=== PATIENT | male | born 1960 | race Caucasian/White ===

== ENCOUNTER 2022-08-09 17:46 | Inpatient (IN) | payer BC, SELFPAY ==
[2022-08-09] VITALS (17 sets, daily range): BP systolic 125–141; BP diastolic 69–100; PULSE 82–91; RESP 12–20; TEMP 36.9; O2SAT 94–98; BMI 22.6
--- NOTE | ~2022-08-09 | CT_ITS ---
EXAMINATION: CT brain wo con DATE: 08/09/2022 20:47 INDICATION: Right-sided weakness TECHNIQUE: Computed tomography (CT) of the head was performed without intravenous contrast. The mA wa s adjusted according to patient size. Iterative reconstruction technique was employed. Exam dose: 60 5.33 mGy-cm total exam DLP. COMPARISON: None FINDINGS: No intracranial mass lesion or hemorrhage or cerebrovascular accident. No midline shift or mass effect. No subdural or epidural hematoma. The orbital contents are unremarkable. The mastoid air cells and included paranasal sinuses are normally developed and aerated. No fracture or bone destruction of the cranial vault. IMPRESSION: No acute intracranial finding Reviewed, dictated and finalized at [facility]. Reviewed, dictated and finalized at location A.
--- NOTE | ~2022-08-09 | MR_ITS ---
EXAMINATION: MR brain/brain stem wo/w con DATE: 08/10/2022 12:27 INDICATION: Right-sided weakness TECHNIQUE: Magnetic resonance imaging (MRI) of the brain and brainstem was performed without intraven ous contrast. Sequences included sagittal and axial T1-weighted SE, axial diffusion-weighted FS SE, a xial T2*-weighted GRE, axial T2-weighted FLAIR Propeller, and axial T2-weighted Propeller. Apparent d iffusion coefficient (ADC) maps were created. COMPARISON: CT dated 08/09/2022. FINDINGS: Mild generalized atrophy. There are scattered mild periventricular and subcortical white ma tter changes, most likely related to small vessel ischemic disease (microangiopathy). No acute intrac ranial infarction, hemorrhage, mass or mass effect. No ventriculomegaly or midline shift. Midline sag ittal images demonstrate a normal corpus callosum and craniovertebral junction. Paranasal sinuses are unremarkable. Orbits are symmetric. IMPRESSION: 1. No acute intracranial abnormality. 2: Chronic age-related findings Reviewed, dictated and finalized at location [facility].
--- NOTE | ~2022-08-09 | MR_ITS ---
EXAMINATION: MR cervical spine wo/w con DATE: 08/10/2022 12:28 INDICATION: without and with 15 mL Multihance TECHNIQUE: Magnetic resonance imaging (MRI) of the cervical spine was performed . without and with 14 mL Multihance intravenous contrast. Sequences included sagittal T2-weighted FSE, sagittal T2-weighte d FS FSE, sagittal T1-weighted FSE, axial T2-weighted FSE, and axial T1-weighted SE. Postcontrast seq uences included sagittal T1-weighted FS FSE, and axial T1-weighted FS SE. COMPARISON: None FINDINGS: Mild cervical dextrocurvature. Straightening of the normal cervical lordosis. 1 mm anterolisthesis C7 on T1. Moderate disc height loss at C5-C6 and C6-C7. Mild disc height loss at C7-T1. Vertebral body heights are normal. Bone marrow signal intensity is normal. Intervertebral disc heights are normal. Cord signal intensity is normal. Cervical soft tissues are unremarkable. No abnormally enhancing les ions identified. The following disc levels are specifically discussed: C2-C3: The disc does not extend beyond the endplate margin. There is mild right uncovertebral joint o steoarthritis. There is mild bilateral facet joint osteoarthritis. There is no neural foraminal steno sis. There is no central canal stenosis. C3-C4: The disc does not extend beyond the endplate margin. There is moderate right and moderate left uncovertebral joint osteoarthritis. There is mild right and moderate left facet joint osteoarthritis . There is mild right and mild to moderate left neural foraminal stenosis. There is no central canal stenosis. C4-C5: The disc does not extend beyond the endplate margin. There is mild bilateral uncovertebral reina nt osteoarthritis. There is moderate right and moderate left facet joint osteoarthritis. There is mil d right and mild to moderate left neural foraminal stenosis. There is no central canal stenosis. C5-C6: Disc is bulging. There is severe bilateral uncovertebral joint osteoarthritis. There is mild r ight and mild to moderate left facet joint osteoarthritis. There is moderate right and moderate to se fela left neural foraminal stenosis. There is mild central canal stenosis with slight indention of th e ventral surface of the cord. C6-C7: Disc is bulging. There is moderate left and severe right uncovertebral joint osteoarthritis. T here is mild to moderate bilateral facet joint osteoarthritis. There is mild left and moderate to sev ere right neural foraminal stenosis. There is mild central canal stenosis. C7-T1: The disc does not extend beyond the endplate margin. There is mild left and moderate right unc overtebral joint osteoarthritis. There is severe bilateral facet joint osteoarthritis. There is mild left and moderate right neural foraminal stenosis. There is no central canal stenosis. IMPRESSION: 1. Mild cervical dextrocurvature with moderate lower cervical predominant spondylosis. Reviewed, dictated and finalized at location A. IMPRESSION: 1. Mild cervical dextrocurvature with moderate lower cervical predominant spond ylosis.
--- NOTE | ~2022-08-09 | US_ITS ---
US right upper quadrant INDICATION: Hepatomegaly PROCEDURE: Realtime right upper abdominal ultrasound. COMPARISON: No prior studies for comparison. FINDINGS: The pancreas is normal without focal mass or pancreatic ductal dilation. Liver echotexture is increased, consistent with fatty infiltration. There is nodular surface to the liver, suspicious for cirrhosis. No focal hepatic masses. There is normal directional flow in the portal vein. Small a mount of free fluid. The gallbladder is normal without stones, gallbladder wall thickening or pericholecystic fluid. Comm on bile duct measures 6 mm. No sonographic Stephenson's sign. IMPRESSION: 1: Hepatic steatosis. Possible underlying cirrhosis. 2: Small amount of ascites. Reviewed, dictated and finalized at location B.
--- NOTE | ~2022-08-09 | XR_ITS ---
XR chest 1V portable DATE: 08/09/2022 19:43 INDICATION: Weakness TECHNIQUE: Portable upright AP chest on 08/09/2022 at 1941 hours COMPARISON: 11/01/2012 two-view chest FINDINGS: Normal heart size. Mild aortic unfolding. No hilar or mediastinal enlargement. No pulmonary infiltrate or consolidation, pleural effusion or pulmonary vascular congestion or pneumothorax. Degenerative spurring of the thoracic spine. IMPRESSION: No active cardiac pulmonary disease Reviewed, dictated and finalized at location A.
[2022-08-09 18:25] LABS: Glucose Point of Care > 500 mg/dl (65-105)
--- NOTE | 2022-08-09 18:25 | ECG_ITS ---
Measurements Intervals [place] Rate: 81 P: 41 ME: 191 QRS: -9 QRSD: 90 T: -6 QT: 388 QTc: 451 Interpretive Statements SINUS RHYTHM INFERIOR MYOCARDIAL INFARCTION , PROBABLY OLD [40+ ms Q WAVE AND/OR ST/T ABNORMALITY IN II/aVF] NO PREVIOUS ECG AVAILABLE FOR COMPARISON Electronically Signed On 08-10-2022 13:52:35 CDT by Sonia Bradshaw M.D.
--- NOTE | 2022-08-09 18:34 | PC.NURSE ---
during assessment acetone noted on breath, glucometer read high, SLN established and labs drawn. Swathi KINNEY notified
[2022-08-09 18:38] LABS: Glucose Point of Care > 500 mg/dl (65-105)
[2022-08-09 18:40] LABS: Basophils Percent Auto 0.3 % (0.2-1.2); Eosinophils Absolute Auto 0.1 K/mm3 (0-0.3); Eosinophils Percent Auto 1.3 % (0-4.4); Hemoglobin 14.4 g/dL (14.0-18.0); Immature Granulocyte Absolute 0.01 K/mm3 (0.00-0.031); Immature Granulocyte Percent A 0.2 % (0-0.5); Immature Platelet Fraction Pct 17.1 % (0.9-11.2); Lymphocytes Absolute Auto 1.26 K/mm3 (0.9-3.2); Lymphocytes Percent Auto 20.5 % (18.3-44.2); Mean Corpuscular HGB Conc 33.5 g/dl (32-36); Mean Corpuscular Hemoglobin 31.1 pg (26-34); Mean Corpuscular Volume 92.9 fl (80-100); Mean Platelet Volume 13.6 fl (7.4-10.4); Monocytes Absolute Auto 0.5 K/mm3 (0.1-0.6); Monocytes Percent Auto 8.5 % (2.6-8.5); Neutrophils Absolute Auto 4.3 K/mm3 (1.3-6.7); Neutrophils Percent Auto 69.2 % (45.5-73.1); Platelet Count Result 115 k/mm3 (150-375); Red Blood Count 4.63 M/mm3 (4.6-6.20); Red Cell Distribution Width 13.1 % (11.5-14.5); White Blood Count 6.2 K/mm3 (4.5-10.0)
[2022-08-09 18:50] LABS: Alanine Aminotransferase 42 U/L (6-50); Albumin Level 4.3 g/dL (3.5-5.1); Alkaline Phosphatase 137 U/L (38-126); Anion Gap 19 mmol/L (8-16); Aspartate Amino Transferase 29 U/L (17-59); Bilirubin,Total 0.9 mg/dL (0.2-1.3); Blood Urea Nitrogen 13 mg/dL (9-20); Calcium 9.1 mg/dL (8.4-10.2); Carbon Dioxide 22 mmol/L (22-30); Chloride 82 mmol/L (98-107); Estimated CRCL calculation 89 ml/min; Estimated Glomerular Filt Rate > 60; Potassium 4.9 mmol/L (3.4-5.0); Sodium 123 mmol/L (137-145)
[2022-08-09 19:08] LABS: Glucose 1016 mg/dL (65-110); Magnesium 1.7 mg/dL (1.6-2.3); Phosphorus 2.9 mg/dL (2.5-4.5)
[2022-08-09] MEDS: SODIUM CHLORIDE 0.9% IV 1,000 ML 999 ML IV CONT ×3 (19:09→20:53)
[2022-08-09 19:12] LABS: Alveolar/Arterial O2 Gradient 40.5 mmHg; Base Excess ABG -3.4 mEq/l (+/-2.0); Carboxyhemoglobin 2.8 % THb (0-2.0); Fractional Inspired Oxygen 21 %; Methemoglobin ABG 0.2 %THb (0-1.5); Oxygen Content ABG 19.3 %vol (16.0-22.0); Oxygen Saturation ABG 96.1 % (95.0-100.0); Oxyhemoglobin 92.1 % THb (90.0-100.0); PCO2 ABG 27.6 mmHg (35.0-45.0); PO2 ABG 76.2 mmHg (80.0-100.0); PO2 FiO2 Ratio Arterial Blood 3.63 %; Reduced Hemoglobin 4.9 %THb (0-5.0); Total Hemoglobin 14.9 g/dL (12.0-18.0); pH ABG 7.455 (7.350-7.450)
[2022-08-09 19:13] LABS: Device ROOM AIR; Modified Allen's Test Pass; Site Drawn LEFT RADIAL
[2022-08-09 19:16] LABS: Beta-Hydroxybutyrate/Acetoacetate 3.02 mmol/L (0.02-0.27)
[2022-08-09 19:29] LABS: Add Urine Microscopic? YES; Appearance Urine Clear (Clear); Bacteria Urine Trace /hpf; Bilirubin Urine Negative (Negative); Blood Urine Negative (Negative); Color Urine Colorless (Yellow); Glucose Urine UA 3+ mg/dL (Negative); Ketones Urine 1+ mg/dL (Negative); Leukocyte Esterase Ur Negative LEU/UL (Negative); Nitrate Urine Negative (Negative); Protein Urine Negative (Negative); Specific Grav Ur 1.025 (1.001-1.035); Urobilinogen Urine Negative mg/dL (<2.0); WBC Urine 0-3 /hpf
[2022-08-09] MEDS: INSULIN HUMAN REGULAR (*BKC) 100 UNITS/ML 9 UNITS IV PUSH (19:35)
[2022-08-09] MEDS: INSULIN HUMAN REGULAR (*BKC) 100 UNITS in SODIUM CHLORIDE 0.9% IV 99 ML 19.1 UNITS IV CONT (19:45)
[2022-08-09] MEDS: MAGNESIUM SULF 2 GM/WATER 50ML 2 GM/50 ML BAG IVPB (20:03)
--- NOTE | 2022-08-09 20:18 | ED.GENADULT ---
HPI - General Adult General Chief complaint: Neuro Symptoms/Deficit Stated complaint: right sided weakness and spasms x 10 days Time Seen by Provider: 08/09/22 19:11 History of Present Illness HPI narrative: Patient is a 62-year-old gentleman who presents emergency department with chief complaint of generalized weakness. The patient states that for several months he has been having increased weakness early CAD and has been thirsty all the time. The patient states over the last 10 days he has noticed that he started having spasms in his extremities that are like a cramp the patient states this is not improved by anything reports that he has reached a point that he is not really eating foods but is drinking lots of fluids. The patient states that he feels extremely dry and reports that he is been urinating quite frequently as well. The patient reports no prior history of diabetes the patient reports no chest pain no shortness of breath no fever or chills. Related Data Allergies Allergy/AdvReac Type Severity Reaction Status Date / Time No Known Allergies Allergy Verified 08/09/22 17:47 Review of Systems Review of Systems: A 10 system review of systems was completed on the patient and is negative except for what is stated in the HPI. Nursing and ancillary documentation was reviewed. [facility] Past Medical History Medical History Generalized anxiety disorder with panic attacks HSV infection Hypospadias Pancreatitis PTSD (post-traumatic stress disorder) Traumatic amputation of finger Surgical History Surgical History History of appendectomy History of colonoscopy (~03/09/17) History of lumbosacral spine surgery Family History Family History Father Diabetes mellitus Other Carcinoma of colon Family history of alcoholism Family history of mental disorder Social History Social History Smoking status: Former smoker Smoking end date: 10/15/17 Exam Narrative: GENERAL: Well-appearing, well-nourished, and in no acute distress. HEAD: Normocephalic, atraumatic. EYES: PERRLA and EOMI. ENT: Nares clear, no rhinorrhea or epistaxis. Mucous membranes moist. NECK: Supple. CHEST: Clear to auscultation. No respiratory distress. HEART: Regular rate and rhythm. No murmur heard. Normal peripheral pulses. ABDOMEN: Soft, nontender, nondistended, normal active bowel sounds. EXTREMITIES: Normal range of motion. No edema. SKIN: Warm, dry, no rash. NEURO: No focal deficits. Alert and oriented x3. PSYCH: Normal mood and affect. Course Vital Signs Vital signs: Vital Signs Temperature 36.9 C 08/09/22 18:03 Pulse Rate 89 08/09/22 18:03 Respiratory Rate 20 08/09/22 18:03 Blood Pressure 131/69 08/09/22 18:03 Pulse Oximetry 97 08/09/22 18:03 Temperature 36.9 C 08/09/22 18:03 Pulse Rate 84 08/09/22 19:46 Respiratory Rate 15 08/09/22 19:46 Blood Pressure 131/85 08/09/22 19:46 Pulse Oximetry 96 08/09/22 19:46 Medical Decision Making Vital Signs Vital Signs: Vital Signs Temperature 36.9 C 08/09/22 18:03 Pulse Rate 89 08/09/22 18:03 Respiratory Rate 20 08/09/22 18:03 Blood Pressure 131/69 08/09/22 18:03 Pulse Oximetry 97 08/09/22 18:03 Temperature 36.9 C 08/09/22 18:03 Pulse Rate 84 08/09/22 19:46 Respiratory Rate 15 08/09/22 19:46 Blood Pressure 131/85 08/09/22 19:46 Pulse Oximetry 96 08/09/22 19:46 Lab Data Result diagrams: 08/09/22 18:34 08/09/22 18:34 Labs: Lab Results 08/09/22 08/09/22 08/09/22 Range/Units 18:21 18:34 18:34 WBC 6.2 (4.5-10.0) K/mm3 RBC 4.63 (4.6-6.20) M/mm3 Hgb 14.4 (14.0-18.0) g/dL Hct 43.0 (42.0-52.0) % MCV 92
--- NOTE | 2022-08-09 20:30 | PM.IMHP ---
H&P: HPI History of Present Illness Date/Time: 08/09/22 20:30 Chief Complaint: 62 years old male with past medical history of anxiety presented to the hospital with generalized weakness started few months ago worsening gradually no aggravating or relieving factors but for the past 10 days it worsened rapidly patient also complains of spasm and numbness on the right upper and lower extremity also was having weakness in the right upper extremity for the past 10 days patient has been complaining of frequency of urination increased thirst polydipsia for few weeks patient have positive family history of diabetes at the ER patient was found to have blood sugar of above a 1000 severely dehydrated chest x-ray no significant findings UA shows few rbc's patient was found to have hyperosmolar hyperglycemia syndrome admitted to the hospital for further evaluation and treatment Review of Systems Review of Systems: Twelve system review was done is negative except above PMFSH Past Medical History Medical History Generalized anxiety disorder with panic attacks HSV infection Hypospadias Pancreatitis PTSD (post-traumatic stress disorder) Traumatic amputation of finger Surgical History Surgical History History of appendectomy History of colonoscopy (~03/09/17) History of lumbosacral spine surgery Family History Family History Father Diabetes mellitus Other Carcinoma of colon Family history of alcoholism Family history of mental disorder Social History Social History Smoking status: Former smoker Smoking end date: 10/15/17 Meds Home Medications and Allergies Home Medications Medication Instructions Recorded Confirmed Type clorazepate dipotassium 7.5 mg 7.5 mg PO TID PRN anxiety #90 tabs 06/16/21 08/10/21 Rx tablet (Tranxene T-Tab) sertraline 100 mg tablet See Rx Instructions .Route 08/10/21 08/10/21 Rx .COMPLEX #180 tabs tramadol 50 mg tablet 100 mg PO Q8H PRN pain #90 tabs 02/09/22 Rx tamsulosin 0.4 mg capsule 0.4 mg PO DAILY #90 caps 02/15/22 Rx bupropion HCl 150 mg tablet,12 hr See Rx Instructions .Route 03/20/22 Rx sustained-release .COMPLEX #90 tabs quetiapine 50 mg tablet 50 mg PO QHS #90 tabs 03/27/22 Rx aripiprazole 5 mg tablet (Abilify) 5 mg PO DAILY #90 tabs 05/03/22 Rx tadalafil 5 mg tablet (Cialis) 5 mg PO DAILY #30 tabs 05/24/22 Rx Allergies Allergy/AdvReac Type Severity Reaction Status Date / Time No Known Allergies Allergy Verified 08/09/22 17:47 Vital Signs Vital Signs - 24 hr 08/09/22 18:03 08/09/22 18:26 08/09/22 18:30 Temperature 98.4 F Pulse Rate 89 Respiratory Rate 20 Blood Pressure 131/69 Pulse Oximetry 97 96 97 08/09/22 18:37 08/09/22 18:38 08/09/22 19:46 Temperature Pulse Rate 82 82 84 Respiratory Rate 18 12 15 Blood Pressure 141/100 H 131/85 Pulse Oximetry 97 98 96 Exam Narrative: GENERAL: Well appearing, well-nourished, non-toxic, in no acute distress. HEAD: Normocephalic, atraumatic. NECK: Supple. No adenopathy, no masses. RESPIRATORY: Airway patent, respirations nonlabored. Clear to auscultation bilaterally, no rales, rhonchi, wheezing. CARDIOVASCULAR: Regular rate and rhythm without murmurs, rubs, or gallops. Peripheral pulses 2+ and equal bilaterally. ABDOMINAL: Soft, nontender, nondistended, no hepatosplenomegaly. Normoactive BS. MUSCULOSKELETAL: Moves all extremities. Strength/ROM intact without gross deformities or TTP. No edema. No calf tenderness. No chest wall tenderness palpation. SKIN: Warm, dry, normal color. No rashes. NEURO: A&O X3. Speech clear. Right upper and lower extremity weakness decreased sensory sensation in the right upper lower extremity PSYCHIATRIC: Appropriate mood and
[2022-08-09 20:47] LABS: Hemoglobin A1C > 14.0 % (<5.7)
[2022-08-09 21:47] LABS: Glucose Point of Care 305 mg/dl (65-105)
[2022-08-09] MEDS: KCL 20 MEQ/D5/0.45% SOD CHL 1,000 ML 150 ML IV CONT (22:18)
--- NOTE | 2022-08-09 22:35 | ADMGEN ---
This patient, Eddie Ordaz, was admitted to Intensive Care Unit-9. Patient/family oriented to hospital policies and general routines including ID bracelet, bed and alarms, visiting hours, pain management, procedures, bathroom and other care routines, personal items, smoking policy, room service/diet, and visiting hours. Information on how to activate the Rapid Response Team has been discussed. Patient/Family are encouraged to report perceived risks to care and to ask questions if they do not understand what they are told or what they should do.
[2022-08-09] MEDS: SODIUM CHLORIDE 0.9% IV 1,000 ML 200 ML IV CONT (22:49)
[2022-08-09] MEDS: ONDANSETRON INJ 4 MG/2 ML VIAL IV PUSH (22:53)
[2022-08-09 23:30] LABS: Anion Gap 13 mmol/L (8-16); Blood Urea Nitrogen 10 mg/dL (9-20); Calcium 8.4 mg/dL (8.4-10.2); Carbon Dioxide 23 mmol/L (22-30); Chloride 99 mmol/L (98-107); Estimated CRCL calculation 101 ml/min; Estimated Glomerular Filt Rate > 60; Glucose 243 mg/dL (65-110); Potassium 2.9 mmol/L (3.4-5.0); Sodium 135 mmol/L (137-145)
[2022-08-09] MEDS: ACETAMINOPHEN 325 MG TABLET 650 MG PO (23:46)
[2022-08-09 23:57] LABS: Glucose Point of Care 173 mg/dl (65-105)
[2022-08-09 23:57] LABS: Glucose Point of Care 301 mg/dl (65-105)
[2022-08-10] VITALS (12 sets, daily range): BP systolic 91–136; BP diastolic 56–84; PULSE 57–85; RESP 15–22; TEMP 36.3–36.9; O2SAT 93–99; BMI 22.6
[2022-08-10] MEDS: INSULIN HUMAN REGULAR (*BKC) 100 UNITS in SODIUM CHLORIDE 0.9% IV 99 ML 7 UNITS IV CONT (00:54)
[2022-08-10 00:59] LABS: Glucose Point of Care 200 mg/dl (65-105)
[2022-08-10 01:53] LABS: Glucose Point of Care 190 mg/dl (65-105)
[2022-08-10 01:53] LABS: Anion Gap 13 mmol/L (8-16); Blood Urea Nitrogen 9 mg/dL (9-20); Calcium 7.8 mg/dL (8.4-10.2); Carbon Dioxide 25 mmol/L (22-30); Chloride 100 mmol/L (98-107); Estimated CRCL calculation 119 ml/min; Estimated Glomerular Filt Rate > 60; Glucose 169 mg/dL (65-110); Magnesium 1.9 mg/dL (1.6-2.3); Phosphorus 2.6 mg/dL (2.5-4.5); Potassium 2.5 mmol/L (3.4-5.0); Sodium 138 mmol/L (137-145)
[2022-08-10] MEDS: POTASSIUM CHLORIDE 20 MEQ TABLET 40 MEQ PO (02:32)
[2022-08-10] MEDS: POTASSIUM CHLORIDE INJ 40 MEQ in SODIUM CHLORIDE 0.9% IV 500 ML 130 MEQ IVPB (02:32)
[2022-08-10 03:04] LABS: Glucose Point of Care 202 mg/dl (65-105)
[2022-08-10] MEDS: INSULIN GLARGINE (*BKC) 100 UNITS/ML 10 UNITS SUB-Q (03:32)
[2022-08-10 06:26] LABS: Glucose Point of Care 264 mg/dl (65-105)
[2022-08-10] MEDS: ACETAMINOPHEN 325 MG TABLET 650 MG PO (06:55)
[2022-08-10 07:32] LABS: Basophils Percent Auto 0.3 % (0.2-1.2); Eosinophils Absolute Auto 0.2 K/mm3 (0-0.3); Hematocrit 36.5 % (42.0-52.0); Hemoglobin 12.3 g/dL (14.0-18.0); Immature Granulocyte Absolute 0.01 K/mm3 (0.00-0.031); Immature Granulocyte Percent A 0.2 % (0-0.5); Immature Platelet Fraction Pct 14.8 % (0.9-11.2); Lymphocytes Absolute Auto 2.01 K/mm3 (0.9-3.2); Lymphocytes Percent Auto 33.2 % (18.3-44.2); Mean Corpuscular HGB Conc 33.7 g/dl (32-36); Mean Corpuscular Hemoglobin 31.4 pg (26-34); Mean Corpuscular Volume 93.1 fl (80-100); Mean Platelet Volume 12.9 fl (7.4-10.4); Monocytes Absolute Auto 0.5 K/mm3 (0.1-0.6); Monocytes Percent Auto 8.3 % (2.6-8.5); Neutrophils Absolute Auto 3.3 K/mm3 (1.3-6.7); Platelet Count Result 100 k/mm3 (150-375); Red Blood Count 3.92 M/mm3 (4.6-6.20); Red Cell Distribution Width 13.2 % (11.5-14.5); White Blood Count 6.1 K/mm3 (4.5-10.0)
[2022-08-10 07:40] LABS: Anion Gap 12 mmol/L (8-16); Blood Urea Nitrogen 8 mg/dL (9-20); Calcium 7.6 mg/dL (8.4-10.2); Carbon Dioxide 24 mmol/L (22-30); Chloride 102 mmol/L (98-107); Estimated CRCL calculation 101 ml/min; Estimated Glomerular Filt Rate > 60; Glucose 238 mg/dL (65-110); Magnesium 1.8 mg/dL (1.6-2.3); Phosphorus 3.5 mg/dL (2.5-4.5); Potassium 3.9 mmol/L (3.4-5.0); Sodium 138 mmol/L (137-145)
[2022-08-10 08:26] LABS: Glucose Point of Care 303 mg/dl (65-105)
--- NOTE | 2022-08-10 09:19 | PM.IMPN ---
Progress Note: A&P Assessment and Plan (1) Hyperosmolar hyperglycemic state (HHS): Code(s): E11.00 - Type 2 diabetes mellitus with hyperosmolarity without nonketotic hyperglycemic-hyperosmolar coma (NKHHC) Status: Acute Assessment and Plan: Patient presents with weakness and found to have a glucose of >1000. He has no hx of DM and now newly diagnosed. He was admitted and started on insulin gtt. His AG was 19 and BHO 3.0 but pH was normal. He did have 1+ ketosis as well. Wilsey he had hyperosmolarity and dehydration from the severe hyperglycemia. His AG closed quickly and has been transtioned to [facility]. DM educator consult. Dietitian consult. (2) Right sided weakness: Code(s): R53.1 - Weakness Status: Acute Assessment and Plan: Patient had right upper lower extremity weakness and spasm. Brain CT showing no acute findings. MR of the brain has been ordered. Exam is not showing any acute findings. Follow up on MRI results. Is at cervical spine MRI as well. Neurology has been consulted. Aspirin has been ordered. We will check B12 folate and TSH levels. Suspect his symptoms are mostly related to above. Did have O2 requirement at night so consider YOSHI - check apnea link tonight (3) Hepatomegaly: Code(s): R16.0 - Hepatomegaly, not elsewhere classified Status: Acute Assessment and Plan: Previous imaging has showed fatty infiltration of the liver. Liver enzyme levels are normal. Will check right upper quadrant ultrasound. (4) Thrombocytopenia: Code(s): D69.6 - Thrombocytopenia, unspecified Status: Acute Assessment and Plan: Platelet count 115 K on admission. Slightly decreased from that today. Could be related to his current condition. This also may be chronic possibly related to his hepatomegaly if he has splenic sequestration. Will continue to monitor for now. Check B12 level. (5) PTSD (post-traumatic stress disorder): Code(s): F43.10 - Post-traumatic stress disorder, unspecified Status: Acute Assessment and Plan: mood is stable. Review home medications and will resume appropriate meds. (6) Generalized anxiety disorder with panic attacks: Code(s): F41.1 - Generalized anxiety disorder; F41.0 - Panic disorder [episodic paroxysmal anxiety] Status: Chronic Assessment and Plan: As above (7) Benign prostatic hyperplasia without lower urinary tract symptoms: Code(s): N40.0 - Benign prostatic hyperplasia without lower urinary tract symptoms Status: Chronic Assessment and Plan: As above. Resume Flomax. Subjective Date/time seen: 08/10/22 09:19 Interval history: 62yo male with PTSD, anxiety and BPH here for weakness and found to have hyperglycemia. Patient slept well last night. Needed O2 last night. No hx of YOSHI. He has been having dyscoordination with walking into ivan and dropping things from his right heand. He is right handed. His legs do not give out. He lives alone. Also with right UE spasm type symptoms. Symptoms worsening over the past few months. He does have mild numbness in his feet but more chronic. Exam Narrative: AF 97.6 110/71 57 21 99% 2L Gen - NARD Chest - CTA bilaterally, nml RR CV - RRR S1/S2. Tele showing no significant dysrhythmias Abd - Soft, +BS, hepatomegaly. No obvious splenomegaly. Ext - No pedal edema. 2+ DP bilaterally. Neuro - Alert and oriented. Strength 5/5 without focal findings. Rapid alt movements and heel to awad okay. Gait not evaluated. Psych - Nml mood and affect Skin - Warm and dry Objective Data Vital Signs Vital Signs: Vital Signs - 24 hr 08/09/22 18:03 08/09/22 18:26 08/09/22 18:30 Temperature 98.4 F Pulse Rate 89 Respiratory Rate 20 Blood Pressure 131/69 Pulse Oximetry 97 96 97 Oxygen Delivery Oxygen Flow Rate 08/09/22 18:37 08/09/22 18:38 08/09/22 19:
[2022-08-10] MEDS: INSULIN ASPART (*BKC) 100 UNITS/ML SUB-Q ×3 (09:35→17:21)
[2022-08-10] MEDS: ASPIRIN 81 MG ENTERIC TABLET PO (09:36)
[2022-08-10] MEDS: ENOXAPARIN 40 MG/0.4 ML SYRINGE SUB-Q (09:36)
[2022-08-10] MEDS: INSULIN GLARGINE (*BKC) 100 UNITS/ML 20 UNITS SUB-Q (09:56)
[2022-08-10 10:16] LABS: Cholesterol 138 mg/dL (0-200); HDL Direct 19 mg/dL; Triglycerides 113 mg/dL (<150)
[2022-08-10 10:36] LABS: LDL Cholesterol Direct 106 mg/dL
[2022-08-10] MEDS: SERTRALINE HCL 50 MG TABLET 200 MG PO (11:02)
[2022-08-10] MEDS: buPROPion HCL SR (12 HR) 150 MG TAB PO (11:02)
--- NOTE | 2022-08-10 11:20 | WPDNEURCNPN ---
Assessment and Plan Assessment and plan (1) Spasm: Code(s): R25.2 - Cramp and spasm Status: Acute (2) Hyperosmolar hyperglycemic state (HHS): Code(s): E11.00 - Type 2 diabetes mellitus with hyperosmolarity without nonketotic hyperglycemic-hyperosmolar coma (NKHHC) Status: Acute Plan Patient with a history of anxiety presenting with right sided weakness, found to have newly diagnosed diabetes and hyperosmolar hyperglycemia. For past 10 days has had daily episodes of spasms of the RUE and RLE. One episode was witnessed during the exam -- appeared like dystonic posturing. No weakness or sensory changes noted in the RUE/RLE. MRI brain unrevealing. Etiology is unclear. There are reports of hyperglycemia-induced involuntary movement, which should theoretically resolve with improvement in blood sugars. - MRI cervical spine pending - If imaging is negative and he continues to have episode despite normalization of blood sugars -- will need outpatient work-up (EMG/NCS, genetic testing for dystonia, possibly EEG) Consult date: 08/10/22 Time Seen: 11:20 Reason for consult: Right sided weakness HPI: Eddie Ordaz is a 62 year old male with a history of anxiety who presented due to increased weakness over the past few months. He also had spasms/numbness and weakness of the RUE and RLE. He presented to the ED where his blood sugars were in the 1000s. He admitted to the ICU due to hyperosmolar hyperglycemia. He had a CT head which was negative. MRI was unremarkable. LDL 106. Per patient the cramping/spasming started about 10 days ago. It occurs intermittently throughout the day, lasting 10-15 minutes at a time. No obvious triggers or exacerbating/alleviating factors. He has never had episodes like this in the past. The spasms occur in the right arm and right leg. His right leg has given out in the past week, resulting in him falling. He doesn't have any alteration in mentation with these episodes. There is no family history of any neurological conditions. Review of Systems Constitutional: Constitutional: Reports fatigue and Reports weakness Eyes: Eyes: Reports blurry vision ENT: Reports system reviewed and no additional complaints, except as documented Cardiovascular: Cardiovascular: Reports no additional cardiovascular complaints Respiratory: Respiratory: Reports no additional respiratory complaints Gastrointestinal: Gastrointestinal: Reports no additional gastrointestinal complaints Genitourinary: Genitourinary: Reports no additional male genitourinary complaints Musculoskeletal: Musculoskeletal: Reports no additional musculoskeletal complaints Integumentary/Breasts: Skin/Breast: Reports system reviewed and no additional complaints, except as docu Neurologic: Reports as per HPI Psychiatric: Psychiatric: Reports no additional psychiatric complaints PMFSH Past Medical History Medical History Generalized anxiety disorder with panic attacks HSV infection Hypospadias Pancreatitis PTSD (post-traumatic stress disorder) Traumatic amputation of finger Surgical History Surgical History History of appendectomy History of colonoscopy (~03/09/17) History of lumbosacral spine surgery Family History Family History Father Diabetes mellitus Other Carcinoma of colon Family history of alcoholism Family history of mental disorder Social History Social History Smoking status: Former smoker Tobacco type: cigarettes Smoking end date: 10/15/17 Alcohol intake: former Substance use: never Has the Lack of Transportation Kept You From Medical Appointments or From Getting Medications?: Yes Within the Past 12 Months, Were You Worried Whether Your Food Would Run Out Before You Got Money to Bu
[2022-08-10 11:23] LABS: Folic Acid 4.5 ng/mL (2.76->20)
--- NOTE | 2022-08-10 11:56 | PCPTNOTE ---
Attempted PT evaluation, Pt is off the floor for testing. Will follow.
[2022-08-10] MEDS: ONDANSETRON INJ 4 MG/2 ML VIAL IV PUSH ×2 (12:42→17:25)
[2022-08-10 12:59] LABS: Glucose Point of Care 391 mg/dl (65-105)
--- NOTE | 2022-08-10 13:07 | WPDCNINT ---
Assessment and Plan Assessment and plan (1) Hyperosmolar hyperglycemic state (HHS): Code(s): E11.00 - Type 2 diabetes mellitus with hyperosmolarity without nonketotic hyperglycemic-hyperosmolar coma (NKHHC) Status: Acute Assessment and Plan: Patient presented the ER with generalized weakness, polydipsia, polyuria, decreased appetite. Was found to have a blood sugars of 1016, can gap was 19, pH was normal, CO2 was normal, elevated beta hydroxybutyrate. According the ER physician patient looked dehydrated. Patient was given 3 L IV fluids and started on insulin infusion. -patient was transition to long-acting insulin, Lantus 10 units subQ x1 per hospitalist. I did give him additional 20 units of Lantus this morning. -continue Accu-Cheks, sliding scale insulin -dietitian and publicity agent consulted -will start diabetic diet (2) Right sided weakness: Code(s): R53.1 - Weakness Status: Acute Assessment and Plan: Right-sided weakness and spasm, -CT scan of the brain did not show any acute findings, -MRI of the brain has been ordered, -appreciate Neurology evaluation recommendation -continue aspirin, -check vitamin B12, folate and TSH level (3) Hepatomegaly: Code(s): R16.0 - Hepatomegaly, not elsewhere classified Status: Acute Assessment and Plan: Hepatic splenomegaly likely related to fatty infiltration of the liver -LFTs are within normal limits -right upper quadrant ultrasound has been ordered (4) Thrombocytopenia: Code(s): D69.6 - Thrombocytopenia, unspecified Status: Acute Assessment and Plan: Could be related to hepatomegaly -continue to monitor Plan DVT prophylaxis: Lovenox Stress ulcer prophylaxis: Not applicable Nutrition: Diabetic diet Code Status: Full code Critical Care Time Spent: 43 minutes Due to a high probability of clinically significant, life threatening deterioration, the patient required my highest level of preparedness to intervene emergently and I personally spent this critical care time directly and personally managing the patient. This critical care time included obtaining a history; examining the patient; pulse oximetry; ordering and review of studies; arranging urgent treatment with development of a management plan; evaluation of patient's response to treatment; frequent reassessment; and discussions with other providers. It was exclusive of separately billable procedures and treating other patients and teaching time. Please see Assessment and Plan section and the rest of the note for further information on patient assessment and treatment [employer]ner Consult Note Consult date: 08/10/22 Reason for consult: Diabetic ketoacidosis, right-sided weakness HPI: Eddie Ordaz is a 62 year old male with past medical history of general anxiety disorder with panic attacks, pancreatitis, PTSD, HSV infection, presented the hospital with generalized weakness started approximately 8 weeks ago and has worsened in the last 10 days. He states his appetite for food had decreasing was drinking a lot of fluids, increased frequency and increased thirst. Patient was also having some weakness in his right upper extremity, had multiple falls, patient states he is unstable on his feet. He is complaining of some spasms or tremors of his right upper extremity and complains of mild numbness in his feet. Patient in the ED was found to have hyperglycemia with blood sugar of 1016, anion gap of 19, CO2 of 22. Hemoglobin A1c > 14.0. Chest x-ray was clear, with no acute cardiopulmonary findings. CT scan of the brain did not show any acute intracranial abnormalities. Patient was given 3 L of IV fluid bolus, started on insulin infusion transfer the ICU for further management Patient seen and examined the ICU, obtained a history from the patient, a pleasant gentleman. Currently states he is feels much better, he states he woke feels like eating something as he m
--- NOTE | 2022-08-10 13:43 | PCNSR ---
On 08/10/22, the student, Moises Rashid, provided care and completed [facility]. I have reviewed the student's documentation and agree with the findings.
[2022-08-10 14:07] LABS: Glucose Point of Care 365 mg/dl (65-105)
[2022-08-10 16:16] LABS: Glucose Point of Care 344 mg/dl (65-105)
--- NOTE | 2022-08-10 18:35 | PC.NURSE ---
This patient, Eddie Ordaz, was transferred to [[facility]] on 08/10/22 at 1835. Personal belongings sent with patient. Report given to [medsurge nurse]. Appropriate documentation sent with patient.
--- NOTE | 2022-08-10 18:40 | PC.NURSE ---
This patient, Eddie Ordaz, was received from ICU-9 on 08/10/22 at 1840. Patient/family oriented to unit policies and routines
[2022-08-10] MEDS: TAMSULOSIN HCL 0.4 MG CAPSULE PO (20:09)
[2022-08-10] MEDS: ARIPiprazole 5 MG TABLET PO (20:09)
--- NOTE | 2022-08-10 20:29 | PC.NURSE ---
@ 2015 patient had episode of right hand tremors and right arm weakness/cramping that only lasted a few minutes. Patient reports 2 episodes of right arm weakness/cramping during MRI this AM.
[2022-08-10 21:47] LABS: Glucose Point of Care 309 mg/dl (65-105)
--- NOTE | 2022-08-11 04:31 | PCRCNOTE ---
patient refused apnea study
[2022-08-11 05:26] VITALS: BP 108/62; PULSE 78; RESP 18; TEMP 36.1; O2SAT 93
--- NOTE | 2022-08-11 06:54 | PC.NURSE ---
Outpatient initial DSMT and [facility].
[2022-08-11 06:55] LABS: Basophils Percent Auto 0.2 % (0.2-1.2); Eosinophils Absolute Auto 0.1 K/mm3 (0-0.3); Eosinophils Percent Auto 2.2 % (0-4.4); Hematocrit 36.7 % (42.0-52.0); Hemoglobin 12.4 g/dL (14.0-18.0); Immature Granulocyte Absolute 0.02 K/mm3 (0.00-0.031); Immature Granulocyte Percent A 0.4 % (0-0.5); Immature Platelet Fraction Pct 15.6 % (0.9-11.2); Lymphocytes Absolute Auto 1.34 K/mm3 (0.9-3.2); Mean Corpuscular HGB Conc 33.8 g/dl (32-36); Mean Corpuscular Hemoglobin 31.4 pg (26-34); Mean Corpuscular Volume 92.9 fl (80-100); Mean Platelet Volume 13.1 fl (7.4-10.4); Monocytes Absolute Auto 0.4 K/mm3 (0.1-0.6); Monocytes Percent Auto 7.3 % (2.6-8.5); Neutrophils Absolute Auto 3.1 K/mm3 (1.3-6.7); Neutrophils Percent Auto 62.9 % (45.5-73.1); Platelet Count Result 95 k/mm3 (150-375); Red Blood Count 3.95 M/mm3 (4.6-6.20); Red Cell Distribution Width 13.2 % (11.5-14.5)
[2022-08-11 07:01] LABS: Alanine Aminotransferase 36 U/L (6-50); Albumin Level 3.5 g/dL (3.5-5.1); Alkaline Phosphatase 98 U/L (38-126); Anion Gap 14 mmol/L (8-16); Aspartate Amino Transferase 30 U/L (17-59); Bilirubin,Total 0.8 mg/dL (0.2-1.3); Blood Urea Nitrogen 6 mg/dL (9-20); Calcium 7.9 mg/dL (8.4-10.2); Carbon Dioxide 23 mmol/L (22-30); Chloride 100 mmol/L (98-107); Estimated CRCL calculation 102 ml/min; Estimated Glomerular Filt Rate > 60; Glucose 286 mg/dL (65-110); Magnesium 1.5 mg/dL (1.6-2.3); Phosphorus 2.8 mg/dL (2.5-4.5); Potassium 3.3 mmol/L (3.4-5.0); Sodium 137 mmol/L (137-145)
[2022-08-11 07:59] LABS: Glucose Point of Care 282 mg/dl (65-105)
--- NOTE | 2022-08-11 08:00 | PCPTNOTE ---
Addendum entered by Dianna Thompson, PT 08/11/22 11:25: Spoke with Hospitalist. OK to continue with PT and request OT evaluation also. RN aware. Original Note: Spoke with RN, Per RN, she requested therapist gets clearance from Hospitalist prior to initiating therapy. Attempted to contact hospitalist, but was not successful. Will Follow
[2022-08-11] MEDS: INSULIN GLARGINE (*BKC) 100 UNITS/ML 30 UNITS SUB-Q (08:07)
[2022-08-11] MEDS: INSULIN ASPART (*BKC) 100 UNITS/ML SUB-Q ×3 (08:07→17:03)
[2022-08-11] MEDS: POTASSIUM CHLORIDE 20 MEQ TABLET 40 MEQ PO (08:14)
[2022-08-11] MEDS: MAGNESIUM OXIDE 400 MG TABLET PO (08:15)
[2022-08-11] MEDS: ASPIRIN 81 MG ENTERIC TABLET PO (08:15)
[2022-08-11] MEDS: SERTRALINE HCL 50 MG TABLET 200 MG PO (08:16)
[2022-08-11] MEDS: buPROPion HCL SR (12 HR) 150 MG TAB PO (08:16)
[2022-08-11] MEDS: EMPAGLIFLOZIN 10 MG TABLET PO (08:17)
[2022-08-11] MEDS: metFORMIN HCL 250 MG TABLET PO ×2 (08:17→17:03)
[2022-08-11] MEDS: ONDANSETRON INJ 4 MG/2 ML VIAL IV PUSH (08:30)
--- NOTE | 2022-08-11 10:00 | PCCDE ---
Consult received 08/09; attempted to meet with pt but he didn't feel up to it; sts I don't think I would retain anything. Will f/up later today.
[2022-08-11 11:45] LABS: Glucose Point of Care 349 mg/dl (65-105)
--- NOTE | 2022-08-11 12:02 | WPDNEUROPN ---
Progress Note: A&P Assessment and Plan (1) Right sided weakness: Code(s): R53.1 - Weakness Status: Acute (2) Hyperosmolar hyperglycemic state (HHS): Code(s): E11.00 - Type 2 diabetes mellitus with hyperosmolarity without nonketotic hyperglycemic-hyperosmolar coma (NKHHC) Status: Acute (3) Spasm: Code(s): R25.2 - Cramp and spasm Status: Acute Plan Patient with a history of anxiety presenting with right sided weakness, found to have newly diagnosed diabetes and hyperosmolar hyperglycemia. For past 10 days has had daily episodes of spasms of the RUE and RLE. One episode was witnessed during exam yesterday -- appeared like dystonic posturing. No weakness or sensory changes noted in the RUE/RLE. MRI brain and cervical spine unrevealing. Episodes have improved as blood sugars have downtrended. Likely hyperglycemia-induced involuntary movements. - No further work-up needed in inpatient setting - If the episodes recur despite normalization of blood sugars, will need outpatient work-up (EMG/NCS, genetic testing for dystonia, possibly EEG) Subjective Date/time seen: 08/11/22 12:02 Interval history: Eddie Ordaz is a 62 year old male with a history of anxiety who presented due to increased weakness over the past few months. He also had spasms/numbness and weakness of the RUE and RLE. He presented to the ED where his blood sugars were in the 1000s. He admitted to the ICU due to hyperosmolar hyperglycemia. He had a CT head which was negative. MRI was unremarkable. LDL 106. Per patient the cramping/spasming started about 10 days ago. It occurs intermittently throughout the day, lasting 10-15 minutes at a time. No obvious triggers or exacerbating/alleviating factors. He has never had episodes like this in the past. The spasms occur in the right arm and right leg. His right leg has given out in the past week, resulting in him falling. He doesn't have any alteration in mentation with these episodes. There is no family history of any neurological conditions. Only one episode of spasming in the RUE since yesterday, occurred last night. Patient feels that this is a reduction. Review of Systems Constitutional: Comments: dizziness Eyes: Eyes: Reports blurry vision ENT: Reports system reviewed and no additional complaints, except as documented Cardiovascular: Cardiovascular: Reports no additional cardiovascular complaints Respiratory: Respiratory: Reports no additional respiratory complaints Gastrointestinal: Gastrointestinal: Reports nausea Genitourinary: Genitourinary: Reports no additional male genitourinary complaints Musculoskeletal: Musculoskeletal: Reports no additional musculoskeletal complaints Integumentary/Breasts: Skin/Breast: Reports system reviewed and no additional complaints, except as docu Neurologic: Reports as per HPI Psychiatric: Psychiatric: Reports no additional psychiatric complaints Exam Const: General: comfortable and no acute distress HENMT: Mouth: Yes moist mucous membranes Eyes: EOM: EOMs intact bilaterally Resp: Effort & Inspection: normal respiratory effort Auscultation: clear to auscultation bilaterally Cardio: Rate: regular rate Rhythm: regular rhythm GI: GI Palp: Yes Soft to palpation Auscultation: normal bowel sounds Skin: General skin exam: normal color Neuro: Other: AOx3, Pupils equal and reactive bilaterally, EOMI, face symmetric, facial sensation intact, tongue protrudes midline, palate midline. Shoulder shrug normal. Strength 5/5 throughout. Sensation intact throughout. Reflexes 1+ in biceps, 1+patellar, and absent AJ bilaterally, FNF normal bilaterally. Language comprehension and fluency intact. Gait deferred. Extrem: General: normal to inspection Psych: Mental Status: mental status grossly normal Affect: normal affect Objective Data Vital Signs Vital Signs: Vital Signs - 24 hr 08/10/22 14:00 08/10/22 16:00 08/10/22 20:00 Te
[2022-08-11 13:15] VITALS: BMI 29.0
[2022-08-11 15:40] VITALS: BP 112/94; PULSE 82; RESP 16; TEMP 36.1; O2SAT 92
--- NOTE | 2022-08-11 16:50 | PM.DS ---
DS: Admitting Diagnosis Discharge Date 08/11/22 Admitting Diagnosis Weakness, hyperglycemia DS: Discharge Diagnosis Discharge Diagnosis (1) Hyperosmolar hyperglycemic state (HHS): Code(s): E11.00 - Type 2 diabetes mellitus with hyperosmolarity without nonketotic hyperglycemic-hyperosmolar coma (NKHHC) Status: Acute (2) Right sided weakness: Code(s): R53.1 - Weakness Status: Acute (3) Thrombocytopenia: Code(s): D69.6 - Thrombocytopenia, unspecified Status: Acute (4) PTSD (post-traumatic stress disorder): Code(s): F43.10 - Post-traumatic stress disorder, unspecified Status: Acute (5) Generalized anxiety disorder with panic attacks: Code(s): F41.1 - Generalized anxiety disorder; F41.0 - Panic disorder [episodic paroxysmal anxiety] Status: Chronic (6) Benign prostatic hyperplasia without lower urinary tract symptoms: Code(s): N40.0 - Benign prostatic hyperplasia without lower urinary tract symptoms Status: Chronic DS: Summary Hospital Course Reason for hospitalization: 62yo male with PTSD, anxiety and BPH here for weakness and found to have hyperglycemia. Adilson H&P for details Hospital Course: Patient presents with weakness and found to have a glucose of >1000. He has no hx of DM and now newly diagnosed. He was admitted and started on insulin gtt. His AG was 19 and BHO 3.0 but pH was normal. He did have 1+ ketosis as well. [place] he had hyperosmolarity and dehydration from the severe hyperglycemia. His AG closed quickly and was transitioned to Lantus. DM educator and Dietitian consulted. Patient had right upper lower extremity weakness and spasm. Brain CT showing no acute findings.? MR of the brain and cervical spine showing no acute findings. Neurology consulted and had no further recommendations. B12, folate and TSH levels all were normal. Suspect his symptoms were related to above. Symptoms resolved. Previous imaging has showed fatty infiltration of the liver.? Liver enzyme levels are normal.? Right upper quadrant ultrasound here showing hepatic steatosis; possible underlying cirrhosis. Did have O2 requirement at night so consider YOSHI. Apnea link was unable to be obtained. Platelet count 115 K on admission. Could be related to his current condition (he had a high % immature plt fraction and MPV) or possibly chronic related to his liver disease.?Will repeat as outpatient. Patient had clinical improvement. He overall did well. Was able be discharged home on 08/11/2022. He did get a meter to go home with Status at Discharge Cognitive/behavioral status at discharge: Stable Time Spent with Patient Time attestation: Total time spent providing and/or coordinating discharge services: 35 minutes Time spent: Greater than 30 minutes Specific discharge activities: patient educated Exam Narrative: AF 97.0 112/94 82 16 92% Gen - NARD Chest - CTA bilaterally, nml RR CV - RRR S1/S2 Abd - Soft, +BS, NT Ext - No pedal edema. Psych - Nml mood and affect Skin - Warm and dry DS: Data Data Completed and Pending Labs on day of discharge: Labs from last 24 hours 08/11/22 08/11/22 08/11/22 11:35 07:48 05:54 WBC 5.0 RBC 3.95 L Hgb 12.4 L Hct 36.7 L MCV 92.9 MCH 31.4 MCHC 33.8 RDW 13.2 Plt Count 95 L MPV 13.1 H Immature Gran % (Auto) 0.4 Neut % (Auto) 62.9 Lymph % (Auto) 27.0 Dent % (Auto) 7.3 Eos % (Auto) 2.2 Baso % (Auto) 0.2 Lymph # (Auto) 1.34 Dent # (Auto) 0.4 Eos # (Auto) 0.1 Baso # (Auto) 0.0 Abs Immat Gran (auto) 0.02 Absolute Neuts (auto) 3.1 Absolute Nucleated RBC 0.0 Nucleated RBC % 0.0 % Immature Plt Fraction 15.6 H Sodium Potassium Chloride Carbon Dioxide Anion Gap BUN Creatinine Estim Creat Clear Calc Estimated GFR Glucose POC Capillary Glucose 349 H 282 H Calcium Phosphorus Magnesium
[2022-08-11 16:55] LABS: Glucose Point of Care 208 mg/dl (65-105)
--- NOTE | 2022-08-12 15:31 | PC.NURSE ---
patient called with questions regarding short acting insulin. Current discharge list does not have any short acting insulin listed. Dr. Parsons notifed. He states that he will call the patient back.
--- NOTE | 2022-08-14 16:13 | PCCDE ---
pt called today with questions. Pt sts his sugars are still in the 200's but he is feeling much better. Pt confirms that he is taking insulin and DM meds as prescribed as well as tracking BG in an claire. Answered questions about diet and counseled about carb counting and sample meal ideas. Pt was reassured. Advised to bring BG results to share at PCP appt on 08/18/22. Pt to call for questions/concerns prn.
== END 2022-08-11 17:55 | disposition home or self-care (01) | DRG 638 ==
LOC: ANHED 20:29 → ANHICU 22:33 → ANH3MEDSUR 08-10 18:42
PROVIDERS: Emergency Medicine; Internal Medicine; Admitting Provider Internal Medicine; Emergency Provider Emergency Medicine; PCP Family Medicine; Visit Provider Internal Medicine
DX: E11.00 Type 2 diabetes mellitus with hyperosmolarity without nonketotic hyperglycemic-hyperosmolar coma (NKHHC) (principal); G81.91 Hemiplegia, unspecified affecting right dominant side; G95.0 Syringomyelia and syringobulbia; B00.9 Herpesviral infection, unspecified; D69.6 Thrombocytopenia, unspecified; E86.0 Dehydration; F43.10 Post-traumatic stress disorder, unspecified; F41.0 Panic disorder [episodic paroxysmal anxiety]; F41.1 Generalized anxiety disorder; G89.4 Chronic pain syndrome; K76.0 Fatty (change of) liver, not elsewhere classified; K74.60 Unspecified cirrhosis of liver; N40.0 Benign prostatic hyperplasia without lower urinary tract symptoms; Q54.9 Hypospadias, unspecified; Z89.029 Acquired absence of unspecified finger(s); Z90.49 Acquired absence of other specified parts of digestive tract; Z91.81 History of falling; Z87.891 Personal history of nicotine dependence
CPT/HCPCS: 36415; 36600; 70450; 70553; 71045; 72156; 76705; 80048; 80053; 80061; 80069; 81001; 82010; 82375; 82607; 82746; 82805; 82948; 83036; 83050; 83735; 84100; 84443; 85025; 85055; 93005; 96361; 96374; 97161; 99285; A9270; A9577; J1650; J1815; J2405; J3475; J3480; J7030; J7040

== ENCOUNTER 2022-09-12 10:44 | Outpatient (CLI) | payer BC, SELFPAY ==
[2022-09-12 19:10] LABS: Anion Gap 14 mmol/L (8-16); Blood Urea Nitrogen 13 mg/dL (9-20); Calcium 9.1 mg/dL (8.4-10.2); Carbon Dioxide 22 mmol/L (22-30); Chloride 107 mmol/L (98-107); Estimated Glomerular Filt Rate > 60; Glucose 179 mg/dL (65-110); Potassium 3.9 mmol/L (3.4-5.0); Sodium 143 mmol/L (137-145)
== END 2022-09-12 10:45 | disposition home or self-care (01) ==
LOC: ANHGOSHLAB 10:47
PROVIDERS: PCP Family Medicine; Visit Provider Family Medicine
DX: E11.65 Type 2 diabetes mellitus with hyperglycemia (principal)
CPT/HCPCS: 36415; 80048

== ENCOUNTER 2022-10-17 01:45 | Outpatient (RCR) | payer BC, SELFPAY | END 2023-01-01 13:51 | disposition home or self-care (01) | LOC: ANHDMC 01:45 | PROVIDERS: PCP Family Medicine; Visit Provider Physician Assistant | DX: E11.65 Type 2 diabetes mellitus with hyperglycemia (principal) | CPT/HCPCS: 99199 ==

== ENCOUNTER 2023-04-12 09:51 | Outpatient (CLI) | payer BC, SELFPAY ==
[2023-04-12 10:34] LABS: Hematocrit 35.7 % (42.0-52.0); Mean Corpuscular HGB Conc 33.6 g/dl (32-36); Mean Corpuscular Hemoglobin 32.2 pg (26-34); Mean Corpuscular Volume 95.7 fl (80-100); Mean Platelet Volume 12.1 fl (7.4-10.4); Platelet Count Result 117 k/mm3 (150-375); Red Blood Count 3.73 M/mm3 (4.6-6.20); Red Cell Distribution Width 15.5 % (11.5-14.5); White Blood Count 7.9 K/mm3 (4.5-10.0)
[2023-04-12 10:37] LABS: INR 1.3; Prothrombin Time 16.9 Seconds (11.1-14.7)
[2023-04-12 10:41] LABS: Hemoglobin A1C 5.7 % (<5.7)
[2023-04-12 10:47] LABS: Anion Gap 11 mmol/L (8-16); Blood Urea Nitrogen 7 mg/dL (9-20); Calcium 8.6 mg/dL (8.4-10.2); Carbon Dioxide 23 mmol/L (22-30); Chloride 106 mmol/L (98-107); Estimated Glomerular Filt Rate > 60; Glucose 191 mg/dL (65-110); Sodium 140 mmol/L (137-145)
== END 2023-04-12 09:52 | disposition home or self-care (01) ==
PROVIDERS: PCP Family Medicine; Visit Provider Surgery
DX: K43.9 Ventral hernia without obstruction or gangrene (principal)
CPT/HCPCS: 36415; 80048; 83036; 85027; 85610; 86850; 86900; 86901

== ENCOUNTER 2023-04-16 04:29 | Day surgery (SDC) | payer BC, SELFPAY ==
[2023-04-10 11:46] VITALS: BMI 31.3
--- NOTE | 2023-04-10 11:56 | PC.NURSE ---
Report to the Outpatient Waiting Room, entrance under the green pavilion located off [facility], at time 9:30 on date 04/16/23. Planned Procedure Time: 11:30. Time changes happen often and if your time is changed the preop area will call you the afternoon before. - You and your visitor will be asked to self-screen and do not enter if you have any COVID symptoms. - A mask is optional within the hospital at this time. Patients may have clear liquids (water, carbonated beverages, clear teas, apple juice) until 3 hours prior to surgery (8:30) with a maximum of 20 ounces. - No food from midnight until time of surgery Take the following medications with a SIP of water the morning of surgery: BUPROPION, SERTRALINE, 1/2 AM INSULIN DOSE, TRAMADOL IF NEEDED DO NOT STOP ANY OF YOUR OTHER PRESCRIPTION MEDICATIONS PRIOR TO SURGERY ?EXCEPT THE FOLLOWING Medications to discontinue per physician: N/A Date to take last dose: N/A Please no make-up, nail macedonian, hairspray, perfume, deodorant, or body powder the day of surgery. No jewelry (including any body piercings) or valuables the day of surgery, leave them at home. Please take a shower or bath the night before, or the morning of, surgery with an antibacterial soap (HIBICLENS). Wear comfortable, loose fitting clothing. - Jewelry must be removed prior to entering the operating room. Rings and piercings that are not removed may be cut off. - The hospital will not accept responsibility for valuables. - Please leave all valuables, including medications, at home the day of surgery. If you are going home after surgery, a licensed student truck driver must drive you home. - NO public transportation without another adult if you receive anesthesia. - We recommend that an adult stay with you for 24 hours following discharge. - We also recommend that you do not drive, make important decision, drink alcoholic beverages, or take any drugs that were not prescribed by your health care provider for at least 24 hours after your discharge time. Follow any additional instructions given to you from your surgeon. If you or anyone in your household have experienced Covid symptoms in the past week, please notify your surgeon or the nurse liaison at the phone number below for possible testing. Telephone instructions given to PT - TIFFANY JENKINS and asked if any additional questions and then verbalized understanding. Patient advised to call surgeon office or pre surgery nurse liaison [phone] if any additional questions.
[2023-04-16] VITALS (12 sets, daily range): BP systolic 113–164; BP diastolic 68–98; PULSE 68–78; RESP 12–24; TEMP 36.2–37.5; O2SAT 90–99
[2023-04-16] MEDS: LACTATED RINGERS 1,000 ML 30 ML IV CONT ×3 (10:11→14:35)
[2023-04-16] MEDS: ACETAMINOPHEN 500 MG TABLET 1000 MG PO (10:14)
[2023-04-16] MEDS: KETOROLAC 15 MG/ML VIAL (*BKC) IV PUSH ×2 (10:16→16:18)
[2023-04-16 10:19] LABS: Glucose Point of Care 141 mg/dl (65-105)
[2023-04-16 10:30] LABS: INR 1.4; Prothrombin Time 17.7 Seconds (11.1-14.7)
--- NOTE | 2023-04-16 11:00 | WPDHPUPDATE1 ---
History and Physical Update Update Date/Time: 04/16/23 11:00 History and Physical has been reviewed, including an updated exam of the patient. There are NO changes in the patient's condition. Risks, benefits, and alternatives have been discussed and questions answered. Patient agrees to proceed with procedure.
--- NOTE | 2023-04-16 11:17 | WPDANESEPPF ---
Anes - Initial Pre Proc Eval Procedure: Operation Date: 04/16/23 11:30 Proposed Procedures p Laparoscopic Epigastric Hernia Repair with Mesh, Davinci Assisted - Talha Hemphill DO Date/Time: 04/16/23 11:17 Surgeon: Talha Hemphill DO Pre Op Diagnosis: Epigastric Hernia Patient Data Age: 62 Gender: M Height: 1.7 m Weight: 93.5 kg Last Vital Signs Temp 99.5 F 04/16/23 09:37 Pulse 74 04/16/23 09:37 Resp 18 04/16/23 09:37 BP 164/95 H 04/16/23 09:37 Pulse Ox 99 04/16/23 09:37 O2 Del Method Room Air 04/16/23 09:37 Allergies Allergy/AdvReac Type Severity Reaction Status Date / Time No Known Allergies Allergy Verified 04/16/23 10:23 Home Medications Medication Instructions Recorded Confirmed Type bupropion HCl 150 mg tablet,12 hr 150 mg PO DAILY 08/09/22 04/16/23 History sustained-release flash glucose sensor (FreeStyle #1 ea 08/23/22 04/16/23 Rx Naseem 2 Sensor kit) blood sugar diagnostic (SetredTouch #100 strips 11/03/22 04/09/23 Rx Verio test strips) lancets 30 gauge (OneTouch Delica #100 ea 11/30/22 04/16/23 Rx Plus Lancet) sertraline 100 mg tablet 200 mg PO DAILY #180 tabs 12/12/22 04/16/23 Rx insulin glargine 100 unit/mL (3 40 unit (0.4 mL) subcut QAM #15 mL 12/18/22 04/16/23 Rx mL) subcutaneous pen flash glucose scanning reader #3 ea 12/22/22 04/16/23 Rx (FreeStyle Naseem 2 [place]) pen needle, diabetic 32 gauge x #1 pkg 01/15/23 04/16/23 Rx (BD Ultra-Fine Nancy Pen Needle) metformin 500 mg tablet,extended 500 mg PO BID #60 tabs 02/09/23 04/16/23 Rx release 24 hr blood-glucose meter (OneTouch #1 pkg 03/05/23 04/09/23 Rx Verio Flex Meter) tramadol 50 mg tablet 50 mg PO Q6H PRN Pain 04/10/23 04/16/23 History Laboratory Tests 04/16/23 04/16/23 10:06 10:09 PT 17.7 H Seconds (11.1-14.7) INR 1.4 POC Capillary Glucose 141 H mg/dl (65-105) Patient hx anesthesia problems: none Family hx anesthesia problems: none Results Review: All pre-operative results and documents have been reviewed as part of the pre-operative evaluation. [facility] Past Medical History Medical History (Updated 04/09/23 @ 14:13 by Honey Figueredo) Generalized anxiety disorder with panic attacks HSV infection Hypospadias Pancreatitis PTSD (post-traumatic stress disorder) Traumatic amputation of finger Type 2 diabetes mellitus with hyperglycemia Surgical History Surgical History (Updated 04/09/23 @ 13:45 by Honey Duarte) History of ankle surgery History of appendectomy History of colonoscopy (~03/09/17) History of lumbosacral spine surgery Family History Family History Father Diabetes mellitus Other Carcinoma of colon Family history of alcoholism Family history of mental disorder Social History Social History (Updated 04/09/23 @ 13:45 by Honey Duarte) Smoking status: Current some day smoker Tobacco type: cigars Smoking end date: 10/15/17 Additional smoking assessment comments: QUIT CIGARETTES 2012 (1/2 PPD X 20 YRS) Alcohol intake: current Alcohol use details: RARE Substance use: never Substance use type: does not use Lack of Transportation: YES Lack of Food: Never True Current Housing: I Have Housing Concerned About Future Housing: No Difficulty Paying Gas/Electric Bills: No Difficulty Paying for Meds: No Currently Unemployed: No Education: Trade/Vocational Certificate Difficulty w/ Childcare or Family Care: No Living arrangements: alone Spiritual care concerns: No Anes - Eval Final PreProcedure Day of Procedure 04/16/23 11:17 Patient weight: obese Heart: regular rate and rhythm Lungs: clear to auscultation Airway: Mallampati scale class II Neurological: alert and oriented Last oral intake: >/= 8 hours ASA classification: III Emergent: no Anesthetic plan: proceed Anesthesia
[2023-04-16] MEDS: ceFAZolin 2 GM/D5W 50 ML 2 GM/50 ML BAG IVPB (11:36)
--- NOTE | 2023-04-16 13:27 | W.PM.PROC2 ---
Procedure Note - Detailed Date of Procedure 04/16/23 Pre-op Diagnosis Epigastric Hernia Post-op Diagnosis Other (Incarcerated 2cm epigastric hernia and 1 cm umbilical hernia, Micronodular Cirrhosis) Procedure Performed Laparoscopic incarcerated epigastric and umbilical hernia repair with mesh, da Zhane assisted Surgeon Talha Hemphill DO Anesthesia General and Local (0.5% bupivacaine with epinephrine) Indications This is a 62-year-old man who presented with pain in his upper abdomen that started just a couple months ago. He was noticing an area of swelling and had pain with standing for long periods of time or lifting heavy objects. He was found to have an epigastric hernia on physical exam. Discussions were made with the patient about treatment options and decision was made to proceed with robotic assisted laparoscopic epigastric hernia repair with mesh. Findings Laparoscopic hernia repair was performed. The patient was found to have a 1 cm umbilical hernia and 2 cm incarcerated epigastric hernia. The epigastric hernia was containing omentum and preperitoneal fat. The hernias were by about 12 cm. The combined size of the 2 hernias was 3 cm. A robotic intraperitoneal onlay mesh technique was utilized for repair. Due to the wide space between the 2 small hernias, decision was made to repair each hernia separately with a separate piece of mesh. While inspecting the abdomen, there did appear to be evidence of portal hypertension with abdominal wall varices. The patient's liver also had evidence of micronodular cirrhosis. There was scant ascites noted as well. Description of Procedure Procedure as well as risks, benefits, and alternatives were discussed with the patient. Written consent was obtained and placed in chart prior to procedure. Patient was brought back to surgical suite. He was placed supine on operating table. Time-out was done to confirm patient and procedure. He was then intubated by the anesthesia department. A bump was placed under his left hip, and the bed was flexed slightly to extend the space between his costal margin and iliac crest. His abdomen was prepped and draped in sterile fashion using chlorhexidine prep. A 5 millimeter incision was made in the left upper quadrant, and a 5 millimeter Optiview trocar was advanced through the abdominal layers under direct visualization. Once inside the abdominal cavity, carbon dioxide insufflation was used to create a pneumoperitoneum. His abdomen was inspected. An 8 millimeter incision was made in the left lower quadrant, and an 8 millimeter robotic trocar was placed under direct visualization. Another 8 millimeter incision was made in the left lateral abdomen, and an 8 millimeter robotic trocar was placed under direct visualization. 0.5% bupivacaine with epinephrine was infiltrated locally around each of the incisions. The 5 millimeter port was removed, the incision was extended to 12 millimeters, and a 12 millimeter air seal port was placed under direct visualization. A Myles-Ordaz cone was also used to place an 0-Vicryl simple interrupted suture at this trocar site. The robotic arms were brought up to the patient's bedside and secured to the ports. The camera and instruments were inserted, and I then moved over to the robotic console and took control of the camera and instruments. After careful thorough inspection of the abdominal cavity, I began my dissection at the epigastric hernia. Incarcerated omentum was carefully dissected free using scissors with electrocautery. It was reduced and then the preperitoneal fat and hernia sac was excised with electrocautery. The preperitoneal fat around the umbilical hernia was also excised with the hernia sac. The hernia sacs were removed and sent to the lab for pathology. I then measured the hernia sizes. The epigastric hernia measured 2 cm and the umbilical hernia measured 1 cm. The 2 hernias were spaced apart by distance of ab
[2023-04-16 13:49] LABS: Glucose Point of Care 140 mg/dl (65-105)
[2023-04-16] MEDS: fentaNYL CITRATE INJ (*CRX) 100 MCG/2 ML VIAL 25 MCG IV PUSH ×4 (13:59→14:10)
[2023-04-16] MEDS: HYDROmorphone HCL INJ (*CRX) 1 MG/ML SYR 0.5 MG IV PUSH ×4 (14:15→15:06)
[2023-04-16] MEDS: oxyCODONE HCL (*CRX) 5 MG TAB IR PO (15:45)
--- NOTE | 2023-04-16 17:09 | SUR.PHASEII ---
1705- ATTEMPTED TO CONTACT DR. MONGE ON PT STATUS. ALSO TO UPDATE ON ASSESSMENT THERE IS STILL A SMALL BULGE WHERE HERNIA SITE IS MARKED. OTHERWISE SURGICAL SITE DRY AND INTACT. ABD BINDER PLACED BACK ON PT. PT STATED PAIN IS TOLERABLE AND READY TO GO HOME. ALL DISCHARGE INSTRUCTIONS GIVEN TO PT AND FRIEND. ALL QUESTIONS ANSWERED.
--- NOTE | 2023-04-16 17:31 | SUR.PHASEII ---
1731- SPOKE TO DR. GONZALEZ AND HE STATED THE SMALL BULGE COULD BE SOME FLUID OR SWELLING. MD AWARE OF ASSESSMENT PRIOR TO DISCHARGE FROM OUT PT RECOVERY.
== END 2023-04-16 17:24 | disposition home or self-care (01) ==
PROVIDERS: PCP Family Medicine; Visit Provider Surgery
PROC: (CPT 49592; principal; 2023-04-16 11:30)
DX: K43.6 Other and unspecified ventral hernia with obstruction, without gangrene (principal); K42.9 Umbilical hernia without obstruction or gangrene; E11.9 Type 2 diabetes mellitus without complications; F41.1 Generalized anxiety disorder; F43.10 Post-traumatic stress disorder, unspecified; F41.0 Panic disorder [episodic paroxysmal anxiety]; Z87.891 Personal history of nicotine dependence; E66.9 Obesity, unspecified; Z68.32 Body mass index [BMI] 32.0-32.9, adult; Z79.4 Long term (current) use of insulin; Z79.84 Long term (current) use of oral hypoglycemic drugs
CPT/HCPCS: 49592; S2900; 36415; 82948; 85610; 88302; A9270; C1781; J0690; J1100; J1170; J1885; J2250; J2405; J2704; J2710; J3010; J7120

== ENCOUNTER 2023-05-09 15:34 | Outpatient (CLI) | payer BC, SELFPAY ==
[2023-05-09 16:38] LABS: Anion Gap 11 mmol/L (8-16); Blood Urea Nitrogen 8 mg/dL (9-20); Calcium 8.3 mg/dL (8.4-10.2); Carbon Dioxide 25 mmol/L (22-30); Chloride 106 mmol/L (98-107); Estimated Glomerular Filt Rate > 60; Glucose 137 mg/dL (65-110); Potassium 3.3 mmol/L (3.4-5.0); Sodium 142 mmol/L (137-145)
== END 2023-05-09 15:35 | disposition home or self-care (01) ==
LOC: ANHLAB 15:35
PROVIDERS: PCP Family Medicine; Visit Provider Surgery
DX: K74.60 Unspecified cirrhosis of liver (principal); R18.8 Other ascites
CPT/HCPCS: 36415; 80048

== ENCOUNTER 2023-05-21 01:24 | Emergency (ER) | payer MEDICARE, SELFPAY ==
[2023-05-21 01:27] VITALS: BP 161/90; PULSE 78; RESP 16; TEMP 36.4; O2SAT 98
[2023-05-21 02:00] LABS: Basophils Absolute Auto 0.1 K/mm3 (0.0-0.1); Basophils Percent Auto 0.5 % (0.2-1.2); Eosinophils Absolute Auto 0.5 K/mm3 (0-0.3); Eosinophils Percent Auto 5.7 % (0-4.4); Hematocrit 37.4 % (42.0-52.0); Hemoglobin 12.6 g/dL (14.0-18.0); Immature Granulocyte Absolute 0.02 K/mm3 (0.00-0.031); Immature Granulocyte Percent A 0.2 % (0-0.5); Lymphocytes Absolute Auto 2.75 K/mm3 (0.9-3.2); Lymphocytes Percent Auto 29.2 % (18.3-44.2); Mean Corpuscular HGB Conc 33.7 g/dl (32-36); Mean Corpuscular Hemoglobin 32.5 pg (26-34); Mean Corpuscular Volume 96.4 fl (80-100); Mean Platelet Volume 11.4 fl (7.4-10.4); Monocytes Absolute Auto 0.6 K/mm3 (0.1-0.6); Monocytes Percent Auto 6.3 % (2.6-8.5); Neutrophils Absolute Auto 5.5 K/mm3 (1.3-6.7); Neutrophils Percent Auto 58.1 % (45.5-73.1); Platelet Count Result 155 k/mm3 (150-375); Red Blood Count 3.88 M/mm3 (4.6-6.20); Red Cell Distribution Width 15.5 % (11.5-14.5); White Blood Count 9.4 K/mm3 (4.5-10.0)
[2023-05-21 02:08] LABS: Ethanol 246 mg/dL (<10)
[2023-05-21 02:09] LABS: Alanine Aminotransferase 37 U/L (6-50); Alkaline Phosphatase 126 U/L (38-126); Anion Gap 11 mmol/L (8-16); Aspartate Amino Transferase 71 U/L (17-59); Bilirubin,Total 1.4 mg/dL (0.2-1.3); Blood Urea Nitrogen 10 mg/dL (9-20); Calcium 8.8 mg/dL (8.4-10.2); Carbon Dioxide 23 mmol/L (22-30); Chloride 107 mmol/L (98-107); Estimated CRCL calculation 89 ml/min; Estimated Glomerular Filt Rate > 60; Glucose 117 mg/dL (65-110); Potassium 3.2 mmol/L (3.4-5.0); Sodium 141 mmol/L (137-145)
[2023-05-21 02:15] LABS: INR 1.3; Prothrombin Time 17.1 Seconds (11.1-14.7)
[2023-05-21 02:16] LABS: Partial Thromboplastin Time 44.4 SECONDS (22.3-36.8)
[2023-05-21 02:47] LABS: Appearance Urine Clear (Clear); Bacteria Urine None Seen /hpf; Bilirubin Urine Negative (Negative); Blood Urine Negative (Negative); Color Urine Yellow (Yellow); Glucose Urine UA Negative (Negative); Ketones Urine Negative (Negative); Leukocyte Esterase Ur Trace LEU/UL (Negative); Need Manual Microscopic Reviewed; Nitrate Urine Negative (Negative); Non Pathogenic Casts 0-2; Protein Urine Negative (Negative); RBC Urine 0-2 /hpf (0-2); Specific Grav Ur 1.007 (1.001-1.035); Squamous Epithelial Cell Urine None seen /hpf (Few); WBC Urine 0-5 /hpf; pH Urine 6.5 (5.0-9.0)
[2023-05-21 02:48] LABS: Add Urine Microscopic? YES
[2023-05-21 02:49] LABS: Amphetamine Screen Urine Negative (Negative); Barbiturate Screen Urine Negative (Negative); Benzodiazepines Screen Urine Negative (Negative); Cannabinoid Screen Urine Positive (Negative); Cocaine Screen Urine Negative (Negative); Methadone Screen Urine Negative (Negative); Opiate Screen Urine Negative (Negative); Phencyclidine Screen Urine Negative (Negative)
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
--- NOTE | 2023-05-21 06:52 | PC.NURSE ---
Patient calls this nurse into room and states I want to go home, I am leaving! This nurse informed him that he made suicidal statements and made actions towards those statements and he cannot leave. Patient starts to raise his voices at this nurse demanding I don't care, I am leaving I am not staying here, I have shit to do! Patient again informed he cannot leave and that his statements and actions are taken seriously. Patient also informed of plan of care to have him sober up and reavaluated and have Crisis come speak with him. Patient continues to say I am leaving, I don't have time for that shit and I just had a shitty day. I am not staying. [employer] notified. Security called.
[2023-05-21 07:16] VITALS: BP 137/91; PULSE 78; RESP 20; O2SAT 98
[2023-05-21 07:24] LABS: Ethanol 136 mg/dL (<10)
[2023-05-21 07:51] LABS: Influenza A QL RT-PCR Negative (Negative); Influenza B QL RT-PCR Negative (Negative); SARS-CoV-2 RNA PCR Negative (Negative)
[2023-05-21 11:38] LABS: Ethanol 39 mg/dL (<10)
--- NOTE | 2023-05-21 13:15 | PC.NURSE ---
ordered pt safety lunch tray.
== END 2023-05-21 14:28 | disposition home or self-care (01) ==
PROVIDERS: General Practice; Emergency Provider Emergency Medicine; PCP Family Medicine
DX: F10.129 Alcohol abuse with intoxication, unspecified (principal); Y90.8 Blood alcohol level of 240 mg/100 ml or more; Z20.822 Contact with and (suspected) exposure to COVID-19; E11.9 Type 2 diabetes mellitus without complications; F43.10 Post-traumatic stress disorder, unspecified; F41.1 Generalized anxiety disorder; Z87.891 Personal history of nicotine dependence; Z89.029 Acquired absence of unspecified finger(s); Z79.84 Long term (current) use of oral hypoglycemic drugs; Z79.4 Long term (current) use of insulin; Z79.899 Other long term (current) drug therapy
CPT/HCPCS: 36415; 80053; 80307; 81001; 84443; 85025; 85610; 85730; 87636; 99284

== ENCOUNTER 2023-08-09 13:08 | Emergency (ER) | payer MEDICARE, SELFPAY ==
--- NOTE | ~2023-08-09 | CT_ITS ---
EXAMINATION: CT brain wo con, CT facial & cervical spine wo DATE: 08/09/2023 13:27 INDICATION: Bruising at the bilateral orbits TECHNIQUE: 1. Computed tomography (CT) of the head was performed without intravenous contrast. Sagittal and fabio nal reconstructions were performed. The mA was adjusted according to patient size. Iterative reconstr uction technique was employed. The dose-length product was 605.33 mGy-cm. 2. Computed tomography (CT) of the maxillofacial region and of the cervical spine were performed with out intravenous contrast. Sagittal and coronal reconstructions of both regions were obtained. Automat ed exposure control and iterative reconstruction technique were employed. The dose-length product was 569.80 mGy-cm. COMPARISON: head CT dated 08/09/2022 and brain and cervical spine MR dated FINDINGS: Head and maxillofacial CT: No acute intracranial hemorrhage, acute infarction or abnormal extra axial fluid collection. There is mild scattered white matter hypoattenuation consistent with chronic small vessel ischemic disease. S ymmetric prominence of the sulci consistent with mild age-appropriate diffuse cerebral volume loss. V entricles are normal and symmetric. No mass/mass effect. No calvarial or maxillofacial fractures. Spe cifically the ivan of the orbits and paranasal sinuses, nasal bones, zygomatic arches and mandible a re all intact. Mild preseptal swelling suggests that the bilateral eyelids. Orbits are otherwise norm al with intact appearing globes and no post septal stranding. There is mild mucosal thickening in the bilateral ethmoid and maxillary sinuses. Mastoid air cells and middle ear cavities are clear. Nasal septum is midline with small leftward spike which parallels the contours of the turbinates. The maxil la is edentulous with alveolar ridge resorptive changes. There are multiple dental caries as well as periodontal disease along mandible. There is a prominent periapical erosion which erodes through the lateral cortex of the mandible at the left first molar. No evident associated subperiosteal abscess. Bilateral parotid and submandibular glands are normal and symmetric. There are several mildly promine nt bilateral cervical lymph nodes, the largest at the right jugular chain along the posterior margin of the submandibular gland measuring up to 11 mm in maximal short axis diameter. Cervical spine: There is mild reversal of the normal cervical lordosis which is likely positional. Unchanged 1 mm ant erolisthesis C7 on T1. Heights are normal. No fractures. Mild to moderate osteoarthritis at the atlan toaxial articulation. Moderate disc height loss at C5-C6 and C6-C7 with disc bulges resulting in mild central canal stenosis at both levels. There is also associated uncovertebral osteoarthritis of both levels, severe bilaterally at C5-C6 and severe on the right and moderate on the left at C6-C7. Mild disc height loss at C7-T1. Mild uncovertebral osteoarthritis at a few of the remaining cervical level s. There is severe bilateral facet osteoarthritis at C7-T1 and the visualized upper thoracic spine. M ild to moderate facet osteoarthritis in the more cephalad cervical spine. Together this structure pos terior multilevel neural foraminal stenosis, moderate severity on the right at C5-C6, C6-C7, T2-T3 an d T3-T4 and on the left at C5-C6 and T3-T4 with mild stenosis at the remaining cervical and upper tho racic neural foramina. Mosaic attenuation of the visualized upper lungs along with concave posterior margin of the trachea consistent with expiratory phase of imaging. IMPRESSION: 1. No acute osseous abnormality at the head or neck. 2. Age-related changes in the brain including mild diffuse on loss and mild scattered white matter hy poattenuation consistent with chronic small vessel ischemic disease. No acute intracranial process. 3. Moderate lower cervical predominant spondylosis. 4. Single minimally
[2023-08-09 13:11] VITALS: BP 127/80; PULSE 90; RESP 16; TEMP 37.1; O2SAT 96
--- NOTE | 2023-08-09 13:25 | PC.NURSE ---
Pt to CT scan via stretcher at this time.
--- NOTE | 2023-08-09 13:38 | ED.GENADULT ---
HPI - General Adult General Chief complaint: Unspecified Stated complaint: bruising to eye orbit Time Seen by Provider: 08/09/23 13:30 History of Present Illness HPI narrative: Patient with history of alcoholic cirrhosis presents here with bruising to both eyes, he cannot recall any recent trauma, he swears that he has not been drinking alcohol recently, and that he has not fallen. Related Data Home Medications Medication Instructions Recorded Confirmed bupropion HCl 150 mg tablet,12 hr 150 mg PO DAILY 08/09/22 06/04/23 sustained-release Allergies Allergy/AdvReac Type Severity Reaction Status Date / Time No Known Allergies Allergy Verified 05/31/23 14:21 Review of Systems Review of Systems: CONST: No fever. HEENT: Black eyes bilaterally C/V: No chest pain RESP: No cough GI: No nausea or vomiting : No dysuria. M/S: No joint pain. SKIN: No rash. NEURO: [No headache or focal numbness or weakness] PSYCH: [No depression] [facility] Past Medical History Medical History (Updated 08/09/23 @ 14:29 by Rose Roque MD) Elevated AST (SGOT) Elevated liver enzymes Generalized anxiety disorder with panic attacks HSV infection Hx of adenomatous colonic polyps Hypospadias Pancreatitis Portal hypertension PTSD (post-traumatic stress disorder) Traumatic amputation of finger Type 2 diabetes mellitus with hyperglycemia Surgical History Surgical History History of ankle surgery History of appendectomy History of colonoscopy (~03/09/17) History of lumbosacral spine surgery History of umbilical hernia repair 04/16/2023 - Laparoscopic incarcerated epigastric and umbilical hernia repair with mesh, da Zhane assisted Family History Family History Father Diabetes mellitus Other Carcinoma of colon Family history of alcoholism Family history of mental disorder Social History Social History Smoking status: Current some day smoker Tobacco type: cigars Smoking end date: 10/15/17 Additional smoking assessment comments: QUIT CIGARETTES 2012 (1/2 PPD X 20 YRS) Alcohol intake: current Alcohol use details: RARE Substance use: never Substance use type: does not use Lack of Transportation: YES Lack of Food: Never True Current Housing: I Have Housing Concerned About Future Housing: No Difficulty Paying Gas/Electric Bills: No Difficulty Paying for Meds: No Currently Unemployed: No Education: Trade/Vocational Certificate Difficulty w/ Childcare or Family Care: No Living arrangements: alone Spiritual care concerns: No Exam Narrative: EXAMINATION OF ORGAN SYSTEMS/BODY AREAS: Constitutional: Vital signs per nursing GENERAL:[No acute distress, non-toxic appearing.] HEAD: Normal with no signs of head trauma. EYES: Bilateral periorbital ecchymosis ENT: Hearing grossly intact LUNGS: Nonlabored breathing. HEART: [Regular rate and rhythm] ABD: [Soft], [nontender to palpation] EXT: Normal range of motion SKIN: Bilateral eyes bruising NEURO: Bruising to ambulating with normal stable gait PSYCH: Normal affect Course Vital Signs Vital signs: Vital Signs Temperature 98.7 F 08/09/23 13:11 Pulse Rate 90 08/09/23 13:11 Respiratory Rate 16 08/09/23 13:11 Blood Pressure 127/80 08/09/23 13:11 Pulse Oximetry 96 08/09/23 13:11 Oxygen Delivery Room Air 08/09/23 13:11 Temperature 98.7 F 08/09/23 13:11 Pulse Rate 81 08/09/23 13:52 Respiratory Rate 22 H 08/09/23 13:52 Blood Pressure 134/83 08/09/23 13:52 Pulse Oximetry 98 08/09/23 13:52 Oxygen Delivery Room Air 08/09/23 13:11 Medical Decision Making MDM Narrative Medical decision making narrative: Patient with history of alcoholic cirrhosis presents here with periorbital ecchymosis, denies any recent trauma. Vital s
[2023-08-09 13:52] VITALS: BP 134/83; PULSE 81; PULSE 86; RESP 22; O2SAT 98
[2023-08-09 13:56] LABS: Basophils Percent Auto 0.6 % (0.2-1.2); Eosinophils Absolute Auto 0.1 K/mm3 (0-0.3); Eosinophils Percent Auto 2.6 % (0-4.4); Hematocrit 31.8 % (42.0-52.0); Hemoglobin 10.5 g/dL (14.0-18.0); Immature Granulocyte Absolute 0.02 K/mm3 (0.00-0.031); Immature Granulocyte Percent A 0.4 % (0-0.5); Immature Platelet Fraction Pct 8.6 % (0.9-11.2); Lymphocytes Absolute Auto 1.23 K/mm3 (0.9-3.2); Lymphocytes Percent Auto 22.6 % (18.3-44.2); Mean Corpuscular Hemoglobin 32.8 pg (26-34); Mean Corpuscular Volume 99.4 fl (80-100); Mean Platelet Volume 11.8 fl (7.4-10.4); Monocytes Absolute Auto 0.4 K/mm3 (0.1-0.6); Monocytes Percent Auto 7.5 % (2.6-8.5); Neutrophils Absolute Auto 3.6 K/mm3 (1.3-6.7); Neutrophils Percent Auto 66.3 % (45.5-73.1); Platelet Count Result 88 k/mm3 (150-375); Red Cell Distribution Width 15.8 % (11.5-14.5); White Blood Count 5.5 K/mm3 (4.5-10.0)
[2023-08-09 14:04] LABS: Alanine Aminotransferase 45 U/L (6-50); Albumin Level 3.5 g/dL (3.5-5.1); Alkaline Phosphatase 92 U/L (38-126); Anion Gap 10 mmol/L (8-16); Aspartate Amino Transferase 54 U/L (17-59); Bilirubin,Total 1.3 mg/dL (0.2-1.3); Blood Urea Nitrogen 8 mg/dL (9-20); Calcium 8.4 mg/dL (8.4-10.2); Carbon Dioxide 19 mmol/L (22-30); Chloride 113 mmol/L (98-107); Estimated CRCL calculation 115 ml/min; Estimated Glomerular Filt Rate > 60; Glucose 119 mg/dL (65-110); Potassium 3.1 mmol/L (3.4-5.0); Sodium 142 mmol/L (137-145)
[2023-08-09 14:05] LABS: Ethanol 35 mg/dL (<10)
[2023-08-09 14:08] LABS: Platelet Estimate Decreased (Adequate); Schistocytes None Seen (NORMAL)
[2023-08-09 14:09] LABS: INR 1.4; Prothrombin Time 18.2 Seconds (11.1-14.7)
[2023-08-09 14:10] LABS: Partial Thromboplastin Time 45.2 SECONDS (22.3-36.8)
[2023-08-09 14:57] VITALS: BP 127/70; PULSE 85; RESP 15; O2SAT 93
== END 2023-08-09 15:02 | disposition home or self-care (01) ==
PROVIDERS: Emergency Provider Emergency Medicine; PCP Family Medicine
DX: S00.12XA Contusion of left eyelid and periocular area, initial encounter (principal); S00.11XA Contusion of right eyelid and periocular area, initial encounter; E11.9 Type 2 diabetes mellitus without complications; K70.30 Alcoholic cirrhosis of liver without ascites; F41.0 Panic disorder [episodic paroxysmal anxiety]; F43.10 Post-traumatic stress disorder, unspecified; Z87.891 Personal history of nicotine dependence; Z86.010 Personal history of colon polyps; Z89.029 Acquired absence of unspecified finger(s); Z79.899 Other long term (current) drug therapy; Z79.84 Long term (current) use of oral hypoglycemic drugs; Z79.4 Long term (current) use of insulin; M47.812 Spondylosis without myelopathy or radiculopathy, cervical region; K05.6 Periodontal disease, unspecified; X58.XXXA Exposure to other specified factors, initial encounter
CPT/HCPCS: 36415; 70450; 70486; 72125; 80053; 80307; 85025; 85055; 85610; 85730; 99284

== ENCOUNTER 2024-06-05 15:28 | Outpatient (CLI) | payer MEDICARE, SELFPAY ==
[2024-06-05 19:59] LABS: LDL Cholesterol Direct 63 mg/dL
[2024-06-05 20:22] LABS: Creatinine Urine 78.1 mg/dL
[2024-06-05 20:25] LABS: Alanine Aminotransferase 43 U/L (6-50); Albumin Level 3.6 g/dL (3.5-5.1); Alkaline Phosphatase 90 U/L (38-126); Anion Gap 10 mmol/L (4-12); Aspartate Amino Transferase 54 U/L (17-59); Bilirubin,Total 4.2 mg/dL (0.2-1.3); Blood Urea Nitrogen 8 mg/dL (9-20); Calcium 8.3 mg/dL (8.4-10.2); Carbon Dioxide 23 mmol/L (22-30); Chloride 106 mmol/L (98-107); Cholesterol 202 mg/dL (0-200); Estimated Glomerular Filt Rate > 60; Glucose 129 mg/dL (65-110); HDL Direct 69 mg/dL; Potassium 2.7 mmol/L (3.4-5.0); Sodium 139 mmol/L (137-145); Triglycerides 103 mg/dL (<150)
[2024-06-05 20:35] LABS: MALB Creatinine Ratio 11.3 mg/g (0-30); Microalbumin Urine Random 8.8 mg/L (0-16.7)
[2024-06-05 21:09] LABS: Hemoglobin A1C 4.3 % (<5.7)
== END 2024-06-05 15:29 | disposition home or self-care (01) ==
LOC: ANHGOSHLAB 15:29
PROVIDERS: PCP Family Medicine; Visit Provider Family Medicine
DX: E11.9 Type 2 diabetes mellitus without complications (principal)
CPT/HCPCS: 36415; 80053; 80061; 82043; 83036

== ENCOUNTER 2024-06-17 12:33 | Outpatient (CLI) | payer MEDICARE, SELFPAY ==
[2024-06-17 15:41] LABS: Anion Gap 10 mmol/L (4-12); Blood Urea Nitrogen 7 mg/dL (9-20); Carbon Dioxide 23 mmol/L (22-30); Chloride 109 mmol/L (98-107); Estimated Glomerular Filt Rate > 60; Glucose 123 mg/dL (65-110); Potassium 3.9 mmol/L (3.4-5.0); Sodium 142 mmol/L (137-145)
== END 2024-06-17 12:34 | disposition home or self-care (01) ==
LOC: ANHGOSHLAB 12:34
PROVIDERS: PCP Family Medicine; Visit Provider Family Medicine
DX: E87.6 Hypokalemia (principal)
CPT/HCPCS: 36415; 80048

== ENCOUNTER 2024-11-05 14:00 | Outpatient (CLI) | payer MEDICARE, SELFPAY ==
[2024-11-05 19:36] LABS: Ethanol 73 mg/dL (<10)
--- OUTSIDE RECORDS SUMMARY | 2024-11-07 01:40 | XMS_ITS | Clinical Summary ---
Author Organization [facility] Address [address] [place] [address] Care Team Providers Care Electrical Installation Supervisor Name Role Phone Jaya Patterson MD Primary Care Provider [phone] Source Comments [facility],non-owned Affiliates and Associated Physician Practices is amultiple site organization consisting of ambulatory clinics and hospital sitesin [place], [place], [place] and [place]. This disclosure is being madepursuant to the Care Everywhere program and may not contain all information available regarding this patient. Last updated 18.[facility] Allergies No known active allergies Medications * Be aware that medications may not be up to date on this document. Alwaysverify current medications with the patient. Medication Sig Dispensed Refills Start Date End Date Status Lantus SoloStar pen Inject 35 (thirty five) Units subcutaneously at bedtime 06/25/2024 Active metFORMIN ER 24hr (Glucophage XR) 500 MG tablet Take 1 (one) tablet by mouth 2 times daily 01/29/2024 Active tamsulosin (Flomax) 0.4 MG capsule Take 1 (one) capsule by mouth once daily 12/28/2023 Active Lancets (ONETOUCH DELICA PLUS 33G EXTRA FINE LANCET) 1 Each 05/05/2024 Active BD Pen Needle Nancy 2nd Gen 32G X 4 MM MISC 1 Each as directed 02/19/2024 Activ e ibuprofen (Motrin) 800 MG tablet Take 1 (one) tablet by mouth every 6 hours as needed for Pain Active OneTouch Verio test strip Use 1 (one) strip as directed 10/05/2023 Active furosemide (Lasix) 40 MG tablet Take 1 (one) tablet by mouth once daily 30 tablet 11 07/11/2024 07/11/2025 Active spironolactone (Aldactone) 100 MG tablet Take 1 (one) tablet by mouth once daily 30 tablet 07/11/2024 07/11/2025 Active Active Problems No known active problems Social History Tobacco Use Types Packs/Day Years Used Date Smoking Tobacco: Some Days Cigarettes Tobacco Cessation:Ready to Q uit: Not Asked; Counseling Given: Not Answered Alcohol Use Standard Drinks/Week Comments Yes 0 (1 standard drink = 0.6 oz pur e alcohol) fifth a week vodka or whiskey Sex and Gender Information Value Date Recorded Sex Assigned at Not on file Gender Identity Not on file Sexual Orientation Not on file Last Filed Vital Signs Vital Sign Reading Time Taken Comments Blood Pressure 136/85 07/11/2024 10:15 AM CDT Pulse 77 07/11/2024 10:15 AM CDT Temperature 36.3 ??C (97.4 ??F) 11/10/2016 6:57 PM CS T Respiratory Rate 16 11/10/2016 6:57 PM [facility] Oxygen Saturation 99% 07/11/2024 10: 15 AM CDT Inhaled Oxygen Concentration - - Weight 92.9 kg (204 lb 12.8 oz) 024 10:15 AM CDT Height 172.7 cm (5' 8 ) 07/11/2024 10:1 5 AM CDT Body Mass Index 31.14 07/11/2024 10:15 AM CDT Plan of Treatment Upcoming Encounters Date Type Department Care Team (Late st Contact Info) Description 11/27/2024 1:00 PM [facility] Office Visit [facility] [address] [place] [address] Flavia Knowles, GAME PROGRAMMER-SERVER ENGINEER [address] [place] [address] [address] [place] [address] Health Maintenance Due Date Last Done Comments COLOGUARD (AGES 45-75) - COL ON CA SCREENING 1958 COLON MONITORING 1958 COLONOSCOPY - COLON CA SCREENING 1958 CT COLONOGRAPHY - COLON CA SCREENING 1958 Colorectal Cancer Screening 1958 FIT - COLON CA SCREENING 1958 FLEX SIG - COLON CA SCREENING 1958 LIPID TESTING 1958 DTAP/TDAP/TD VACCINES (1 - Tdap) 1977 PNEUMOCOCCAL VACCINE 50+ (1 of 2 - PCV) 1977 ZOSTER VACCINE (1 of 2) 2008 HEPATITIS B VACCINE (1 of 3 - Risk 3-dose series) 2018 Respiratory Syncytial Virus (RSV) Vaccine Pt: or over 60 yrs (1 - Risk 60-74 years 1-dose series) 2018 AAA SCREENING 2023 COVID-19 VACCINE (1 - 2023-2 5 season) 2024 INFLUENZA VACCINE (#1) 2024 DEPRESSION SCREENING 10/15/2024 MEDICARE AWV ? CALENDAR YEAR 2024 SCREENING FOR DIABETES 07/11/2027 07/11/2024 HEPATITIS C SCREENING Completed 07/11/2024 HIB VACCINE Aged Out No longer eligi ble based on patient's age to complete this topic HPV VACCINE Aged Out No longer eligi ble based on patient's age to complete this topic MENINGOCOCCAL (Group B) VACCINE Aged Out No longer eligible based on patient's age to complete this topic MENINGOCOCCAL VACCINE Aged Out No marylu myriam eligible based on patient's age to complete this topic Procedures Procedure Name Priority Date/Time Associated Diagnosis Comments COMPREHENSIVE METABOLIC PANEL Routine 07/11/2024 11:49 AM CDT Alcoholic cirrhosis of liver with ascites (HCC) HEPATITIS C ANTIBODY Routine 07/11/2024 11:49 AM CDT Alcoholic cirrhosis of liver with ascites (HCC) from Last 3 Months or Most Recently Relevant to Health Maintenance Results * (ABNORMAL) COMPREHENSIVE METABOLIC PANEL (07/11/2024 11:49 AM CDT) BUN 5(L) 7 - 26 mg/dL 07/11/2024 12:51 PM [facility] Creatinine 0.64(L) 0.71 - 1.16 mg/dL 07/11/2024 12:51 PM [facility] Sodium 142 136 - 145 mmol/L 07/11/2024 12:51 PM [facility] Potassium 3.3(L) 3.5 - 4.5 mmol/L 07/11/2024 12:51 PM [facility] Chloride 112(H) 98 - 107 mmol/L 07/11/2024 12:51 PM [facility] CO2 20(L) 22 - 29 mmol/L 07/11/2024 12:51 PM [facility] Glucose 138(H) 70 - 115 mg/dL 07/11/2024 12:51 PM [facility] Calcium 8.1(L) 8.4 - 10.2 mg/dL 07/11/2024 12:51 PM [facility] Protein Total 6.6 6.0 - 8.3 g/dL 07/11/2024 12:51 PM [facility] Albumin 3.2(L) 3.4 - 5.0 g/dL 07/11/2024 12:51 PM [facility] Bilirubin Total 2.7(H) 0.2 - 1.2 mg/dL 07/11/2024 12:51 PM [facility] Alkaline Phosphatase 149 40 - 150 U/L 07/11/2024 12:51 PM [facility] ALT 24 5 - 55 U/L 07/11/2024 12:51 PM [facility] AST 42(H) 5 - 34 U/L 07/11/2024 12:51 PM [facility] Anion Gap 10 6 - 16 07/11/2024 12:51 PM [facility] BUN/Creatinine Ratio 8 7 - 23 07/11/2024 12:51 PM [facility] Osmolality Calculated 293 275 - 295 mOsm/kg 07/11/2024 12:51 PM [facility] Albumin/Globulin Ratio 0.9(L) 1.1 - 2.3 07/11/2024 12:51 PM [facility] eGFR by CKD-EPI >90 >=90 mL/min/1.7 3 m2 07/11/2024 12:51 PM [facility] Blood BLOOD SPECIMEN / Unknown Lab Venipuncture / Unknown 07/11/2024 11:49 AM CDT 07/11/2024 12:21 PM CDT Flavia Knowles GAME PROGRAMMER-SERVER ENGINEER LAB - CHEMI STRY ORDERABLES [address] [address], [facility] [phone] * HEPATITIS C ANTIBODY (07/11/2024 11:49 AM CDT) Hepatitis C Antibody Non-react syeda Non-reac tive 07/11/2024 1:09 PM CDT [facility] Comment:Hepatitis C Antibody screen indicates no serologic evidence of past or current infection with Hepatitis C Virus. Patients with unexplained liver disease who are immunocompromised or suspected of having acute Hepatitis C infection may benefit from Nucleic Acid Test (TRUMAN) for Hepatitis C Viral RNA to confirm Hepatitis C status. Blood BLOOD SPECIMEN / Unknown Lab Venipuncture / Unknown 07/11/2024 11:49 AM CDT 07/11/2024 12:10 PM CDT Flavia Knowles GAME PROGRAMMER-SERVER ENGINEER LAB - CHEMI STRY ORDERABLES Performing Organization Address City/[facility]/ZIP Co de Phone Number [address] [address], [facility] [phone] from Last 3 Months or Most Recently Relevant to Health Maintenance Care Teams Electrical Installation Supervisor Relationship Specialty Start Date End Date Jaya Patterson MD [address] [place] [id number] PCP - General Family Medicine 11/10/16
--- OUTSIDE RECORDS SUMMARY | 2024-11-07 01:40 | XMS_ITS | Patient Health Summary ---
Author Organization [facility] Address [address] [place] [address] Care Team Providers Care Banjo Repairer Name Role Phone Jaya Patterson MD Primary Care Provider [phone] Note from [facility],non-owned Affiliates and Associated Physician Practices is amultiple site organization consisting of ambulatory clinics and hospital sitesin [place], [place], [place] and [place]. This disclosure is being madepursuant to the Care Everywhere program and may not contain all information available regarding this patient. Last updated 18.[facility] Allergies No known active allergies Medications * Be aware that medications may not be up to date on this document. Alwaysverify current medications with the patient. * Lantus SoloStar pen(Started 06/25/2024) Inject 35 (thirty five) Units subcutaneously at bedtime * metFORMIN ER 24hr (Glucophage XR) 500 MG tablet(Started 01/29/2024) Take 1 (one) tablet by mouth 2 times daily * tamsulosin (Flomax) 0.4 MG capsule(Started 12/28/2023) Take 1 (one) capsule by mouth once daily * Lancets (ONETOUCH DELICA PLUS 33G EXTRA FINE LANCET)(Started 05/05/2024) 1 Each * BD Pen Needle Nancy 2nd Gen 32G X 4 MM MISC(Started 02/19/2024) 1 Each as directed * ibuprofen (Motrin) 800 MG tablet Take 1 (one) tablet by mouth every 6 hours as needed for Pain * OneTouch Verio test strip(Started 10/05/2023) Use 1 (one) strip as directed * furosemide (Lasix) 40 MG tablet(Started 07/11/2024) Take 1 (one) tablet by mouth once daily 11 refills by 07/11/2025 * spironolactone (Aldactone) 100 MG tablet(Started 07/11/2024) Take 1 (one) tablet by mouth once daily 11 refills by 07/11/2025 Active Problems No known active problems Social [...] PM CS T Respiratory Rate 16 11/10/2016 6:5 7 PM INSPECTOR WATCH TRAIN Oxygen Saturation 99% 07/11/2024 10: 15 AM CDT Inhaled Oxygen Concentration - - Weight 92.9 kg (204 lb 12.8 oz) 024 10:15 AM CDT Height 172.7 cm (5' 8 ) 07/11/2024 10:1 5 AM CDT Body Mass Index 31.14 07/11/2024 10:15 AM CDT Procedures * SMOOTH MUSCLE ANTIBODY W REFLEX TITER(Performed 07/11/2024) Performed for Alcoholic cirrhosis of liver with ascites (HCC) * PT-INR [facility](Performed 07/11/2024) Performed for Alcoholic cirrhosis of liver with ascites (HCC) * PHOSPHATIDYLETHANOL (PETH)(Performed 07/11/2024) Performed for Alcoholic cirrhosis of liver with ascites (HCC) * IRON + TRANSFERRIN PANEL(Performed 07/11/2024) Performed for Alcoholic cirrhosis of liver with ascites (HCC) * HEPATITIS C ANTIBODY(Performed 07/11/2024) Performed for Alcoholic cirrhosis of liver with ascites (HCC) * HEPATITIS B SURFACE ANTIGEN W RFLX CONFIRMATION(Performed 07/11/2024) Performed for Alcoholic cirrhosis of liver with ascites (HCC) * HEPATITIS B SURFACE ANTIBODY(Performed 07/11/2024) Performed for Alcoholic cirrhosis of liver with ascites (HCC) * HEPATITIS B CORE ANTIBODY TOTAL(Performed 07/11/2024) Performed for Alcoholic cirrhosis of liver with ascites (HCC) * HEPATITIS A ANTIBODY(Performed 07/11/2024) Performed for Alcoholic cirrhosis of liver with ascites (HCC) * GGT(Performed 07/11/2024) Performed for Alcoholic cirrhosis of liver with ascites (HCC) * FERRITIN(Performed 07/11/2024) Performed for Alcoholic cirrhosis of liver with ascites (HCC) * CERULOPLASMIN(Performed 07/11/2024) Performed for Alcoholic cirrhosis of liver with ascites (HCC) * NELL BLOOD SCREEN W/REFLEX TITER(Performed 07/11/2024) Performed for Alcoholic cirrhosis of liver with ascites (HCC) * MITOCHONDRIAL ANTIBODY SCREEN(Performed 07/11/2024) Performed for Alcoholic cirrhosis of liver with ascites (HCC) * CMFBG-6-[id number] BLOOD(Performed 07/11/2024) Performed for Alcoholic cirrhosis of liver with ascites (HCC) * ALPHA FETOPROTEIN BLOOD TUMOR MARKER(Performed 07/11/2024) Performed for Alcoholic cirrhosis of liver with ascites (HCC) * COMPREHENSIVE METABOLIC PANEL(Performed 07/11/2024) Performed for Alcoholic cirrhosis of liver with ascites (HCC) * CBC W AUTO DIFFERENTIAL(Performed 07/11/2024) Performed for Alcoholic cirrhosis of liver with ascites (HCC) * ED GENERAL PROCEDURE(Performed 11/11/2016) Performed for Injury, other and unspecified, finger, Fingertip amputation, initial encounter, Open fracture of tuft of distal phalanx of finger, initial encounter * INCISION AND DRAINAGE FINGER(Performed 11/10/2016) * XR FINGER(S) LEFT(Performed 11/10/2016) Performed for Injury, other and unspecified, finger Results * (ABNORMAL) PT-INR [facility] (07/11/2024 11:49 AM CDT) PT 20.1(H) 12.1 - 14.8 Seconds 07/11/2024 12:41 PM CDT [facility] INR 1.8 See Comment 07/11/2024 12:41 PM CDT [facility] Comment:The suggested therap eutic range for standard coumadin (warfarin) therapy is an INR of 2.0-3.0. For high-risk patients (Mechanical Mitral Valve Prosthesis, etc.), the suggested prophylactic therapeutic range is an INR of 2.5-3.5. Blood BLOOD SPECIMEN / Unknown Lab Venipuncture / Unknown 07/11/2024 11:49 AM CDT 07/11/2024 12:10 PM CDT Flavia Neely Eleni LENDING MANAGER-STITCHER FEEDER [facility] ORDERABLES [facility] [address] [place] [address], [facility] [place] [phone] * PHOSPHATIDYLETHANOL (PETH) (07/11/2024 11:49 AM CDT) PEth 16:0/18.1 (POPEth) 479 ng/mL 07/14/2024 8:48 PM CDT [facility] ([facility]) Comment: PEth 16:0/18:1 (POPEth) Less than 10 ng/mL............Not detected Less than 20 ng/mL............Abstinence or light alcohol consumption 20 - 200 ng/mL................Moderate alcohol consumption Greater than 200 ng/mL........Heavy alcohol consumption or chronic alcohol use (Reference: Low Neff and Aranza Jacobs 2018 J. Forensic Sci) PEth 16:0/18.2 (PLPEth) 531 ng/mL 07/14/2024 8:48 PM CDT [facility] ([facility]) Comment:Reference ranges are not well established. EER Peth See Note 07/14/2024 8:48 PM CDT [facility] ([facility]) Comment: Authorized individuals can access the Application Craft Enhanced Report using the following link: [email or web address] Interpretation PEth See Comment 07/14/2024 8:48 PM CDT [facility] ([facility]) Comment: Phosphatidylethanol (PEth) is a group of phospholipids formed in the presence of ethanol, phospholipase D and phosphatidylcholine. PEth is known to be a direct alcohol biomarker. The predominant PEth homologues are PEth 16:0/18:1 (POPEth) and PEth 16:0/18:2 (PLPEth), which account for 37-46% and 26-28% of the total PEth homologues, respectively. PEth is incorporated into the phospholipid membrane of red blood cells and has a general half-life of 4-10 days and a window of detection of 2-4 weeks. However, the window of detection is longer in individuals who chronically or excessively consume alcohol. The limit of quantification is 10 ng/mL. Serial monitoring of PEth may be helpful in monitoring alcohol abstinence over time. PEth results should be interpreted in the context of the patient's clinical and behavioral history. Patients with advanced liver disease may have falsely elevated PEth concentrations (Tanya HOWARD et al 2018, Alcoholism Clinical & Experimental Research). This test was developed and its performance characteristics determined by [facility]. It has not been cleared or approved by the U.S. Food and Drug Administration. This test was performed in a CLIA-certified laboratory and is intended for clinical purposes. Performed By: [facility] [address] [place] [address] Property Worker: Haider Oakley MD, PhD CLIA Number: [id number] Blood BLOOD SPECIMEN / Unknown Lab Venipuncture / Unknown 07/11/2024 11:49 AM CDT 07/11/2024 12:10 PM CDT Flavia Knowles LENDING MANAGER-STITCHER FEEDER LAB - CHEMI STRY ORDERABLES [facility] ([facility]) [address] [place], [place] [address] * SMOOTH MUSCLE ANTIBODY W REFLEX TITER (07/11/2024 11:49 AM CDT) F-Actin Antibody IgG 10 0 - 19 Units 07/13/2024 5:39 AM CDT [facility] ([facility]) Comment: If F-Actin (Smooth Muscle) Antibody, IgG is negative, the Smooth Muscle Antibody titer by IFA is not performed. REFERENCE INTERVAL: F-Actin (Smooth Muscle) Antibody, IgG by ?MEGAN ??19 Units or less ....... Negative ??20 - 30 Units .......... Weak Positive-Suggest repeat ? testing in two to three weeks ? with fresh specimen. ??31 Units or greater..... Positive-Suggestive of ? autoimmune hepatitis type 1 ? or chronic active hepatitis. F-actin IgG antibodies have been shown to have increased sensitivity for autoimmune hepatitis (AIH) but lower specificity than smooth muscle antibodies (SMA). F-actin IgG antibodies can also be seen in SMA-negative disease controls (non-AIH), especially in patients with primary biliary cirrhosis and chronic hepatitis C infections. Some patients with AIH may be SMA-positive but negative for F-actin IgG. Consider testing for SMA by IFA if suspicion for AIH is strong. Performed By: [facility] [address] [place], [place] [id number] Property Worker: Haider Oakley MD, PhD CLIA Number: [id number] Blood BLOOD SPECIMEN / Unknown Lab Venipuncture / Unknown 07/11/2024 11:49 AM CDT 07/11/2024 12:10 PM CDT Flavia Knowles LENDING MANAGER-STITCHER FEEDER LAB - SEROL OGY ORDERABLES [facility]) [address] [place] [address], [facility] [place] * MITOCHONDRIAL ANTIBODY SCREEN (07/11/2024 11:49 AM CDT) Mitochondrial M2 Antibody 11.2 0.0 - 24.9 Units 07/13/2024 5:39 AM CDT [facility] ([facility]) Comment: REFERENCE INTERVAL: Mitochondrial (M2) Antibody, IgG ?20.0 Units or less ......... Negative ??20.1 - 24.9 Units........... Equivocal ??25.0 Units or greater....... Positive Anti-mitochondrial antibodies (AMA) are thought to be present in 90-95% of patients with primary biliary cholangitis (PBC). However, the frequency of detected antibodies may be cohort or assay dependent, as lower sensitivities have been reported. Not all PBC patients are positive for AMA; some patients may be positive for SP100 and/or GP210 antibodies. A negative result does not rule out PBC. Performed By: [facility] [employer] [address] [place] [address] Property Worker: Haider Oakley MD, PhD CLIA Number: [id number] Blood BLOOD SPECIMEN / Unknown Lab Venipuncture / Unknown 07/11/2024 11:49 AM CDT 07/11/2024 12:10 PM CDT Flavia Knowles LENDING MANAGER-STITCHER FEEDER LAB - CHEMI STRY ORDERABLES [facility]) [address] [place] [address], [facility] [place] * NELL BLOOD SCREEN W/REFLEX TITER (07/11/2024 11:49 AM CDT) NELL IgG None Detected None Detected 07/13/2024 6:14 AM CDT [facility] ([facility]) Comment: If suspicion of connective tissue disease is strong and NELL EIA is negative, consider testing for NELL by IFA ([id number]). INTERPRETIVE INFORMATION: Anti-Nuclear Antibodies (NELL), IgG by MEGAN Antinuclear Antibodies (NELL), IgG by MEGAN: NELL specimens are screened using enzyme-linked immunosorbent assay (MEGAN) methodology. All MEGAN results reported as Detected are further tested by indirect fluorescent assay (IFA) using HEp-2 substrate with an IgG-specific conjugate. The NELL MEGAN screen is designed to detect antibodies against dsDNA, histones, SS-A (Ro), SS-B (La), Jacobs, Jacobs/KETTLE OPERATOR HEAD, Scl-70, Angela-1, centromeric proteins, other antigens extracted from the HEp-2 cell nucleus. NELL MEGAN assays have been reported to have lower sensitivities than NELL IFA for systemic autoimmune rheumatic diseases (SARD). Negative results do not necessarily rule out SARD. Performed By: [facility] [employer] [address] [place] [address] Property Worker: Haider Oakley MD, PhD CLIA Number: [id number] Blood BLOOD SPECIMEN / Unknown Lab Venipuncture / Unknown 07/11/2024 11:49 AM CDT 07/11/2024 12:10 PM CDT Flavia Knowles LENDING MANAGER-[facility] LAB - CHEMI STRY ORDERABLES [address] * CERULOPLASMIN (07/11/2024 11:49 AM CDT) Ceruloplasmin 22 20 - 60 mg/dL 07/11/2024 12:59 PM CDT [facility] Blood BLOOD SPECIMEN / Unknown Lab Venipuncture / Unknown 07/11/2024 11:49 AM CDT 07/11/2024 12:10 PM CDT Flavia Knowles [facility] - CHEMI STRY ORDERABLES [address] [address], [facility] [place] [phone] * ALPHA FETOPROTEIN BLOOD TUMOR MARKER (07/11/2024 11:49 AM CDT) Alpha-Fetoprote in Tumor Marker 2.0 <=8.3 ng/mL 07/11/2024 4:39 PM CDT [facility] Comment: AFP values will vary depending on testing procedure used. Results are not comparable across different methods. AFP values obtained by [facility] using an Matthews Alinity Immunoassay. Blood BLOOD SPECIMEN / Unknown Lab Venipuncture / Unknown 07/11/2024 11:49 AM CDT 07/11/2024 12:21 PM CDT Flavia Knowles LENDING MANAGER-STITCHER FEEDER LAB - CHEMI STRY ORDERABLES [facility] [address] [place] [address], [facility] [place] [phone] * FWRMV-1-[id number] BLOOD (07/11/2024 11:49 AM CDT) Pathologist [facility] Tbgep-6-Wgwvrm ypsin 195 90 - 200 mg/dL 07/11/2024 12:59 PM CDT [facility] Blood BLOOD SPECIMEN / Unknown Lab Venipuncture / Unknown 07/11/2024 11:49 AM CDT 07/11/2024 12:10 PM CDT Flavia Knowles LENDING MANAGER-STITCHER FEEDER LAB - CHEMI STRY ORDERABLES Performing Organization Address City/[facility]/ZIP Co de Phone Number [facility] [address] [place] [address], [facility] [place] [phone] * (ABNORMAL) CBC WITH DIFFERENTIAL (07/11/2024 11:49 AM CDT) [facility] WBC 6.5 4.0 - 10.7 x10E9/L 07/11/2024 12:41 PM [facility] RBC Count 2.96(L) 4.30 - 5.80 x10E12/L 07/11/2024 12:41 PM [facility] Hemoglobin 10.1(L) 13.3 - 17.5 g/dL 07/11/2024 12:41 PM [facility] Hematocrit 29.0(L) 38.7 - 51.1 % 07/11/2024 12:41 PM [facility] MCV 98.0 80.0 - 98.0 fL 07/11/2024 12:41 PM [facility] MCH 34.1(H) 26.7 - 33.6 pg 07/11/2024 12:41 PM [facility] MCHC 34.8 31.7 - 36.3 g/dL 07/11/2024 12:41 PM [facility] RDW-CV 15.1(H) 11.3 - 14.8 % 07/11/2024 12:41 PM [facility] Platelet Count 73(L) 150 - 420 x10E9/L 07/11/2024 12:41 PM [facility] MPV 12.2(H) 7.8 - 11.4 fL 07/11/2024 12:41 PM [facility] Neutrophil % 69.7 41.0 - 74.0 % 07/11/2024 12:41 PM [facility] Lymphocyte % 19.0 17.0 - 47.0 % 07/11/2024 12:41 PM [facility] Monocyte % 8.1 3.0 - 11.0 % 07/11/2024 12:41 PM [facility] Eosinophil % 2.2 0.0 - 7.0 % 07/11/2024 12:41 PM [facility] Basophil % 0.5 0.0 - 1.6 % 07/11/2024 12:41 PM [facility] Immature Granulocytes % 0.5 0.0 - 1.0 % 07/11/2024 12:41 PM [facility] Neutrophil Absolute 4.54 1.60 - 7.50 x10E9/L 07/11/2024 12:41 PM [facility] Lymphocyte Absolute 1.24 1.00 - 4.40 x10E9/L 07/11/2024 12:41 PM [facility] Monocyte Absolute 0.53 0.15 - 1.00 x10E9/L 07/11/2024 12:41 PM [facility] Eosinophil Absolute 0.14 0.00 - 0.60 x10E9/L 07/11/2024 12:41 PM [facility] Basophil Absolute 0.03 0.00 - 0.13 x10E9/L 07/11/2024 12:41 PM [facility] Blood BLOOD SPECIMEN / Unknown Lab Venipuncture / Unknown 07/11/2024 11:49 AM T 07/11/2024 12:21 PM CDT Flavia Knowles LENDING MANAGER-STITCHER FEEDER LAB - HEMAT OLOGY ORDERABLES [facility] [address] [place] [address], [facility] [place] [phone] * (ABNORMAL) COMPREHENSIVE METABOLIC PANEL (07/11/2024 11:49 AM CDT) BUN 5(L) 7 - 26 mg/dL 07/11/2024 12:51 PM [facility] Creatinine 0.64(L) 0.71 - 1.16 mg/dL 07/11/2024 12:51 PM [facility] Sodium 142 136 - 145 mmol/L 07/11/2024 12:51 PM [facility] Potassium 3.3(L) 3.5 - 4.5 mmol/L 07/11/2024 12:51 PM [facility] Chloride 112(H) 98 - 107 mmol/L 07/11/2024 12:51 PM [facility] CO2 20(L) 22 - 29 mmol/L 07/11/2024 12:51 PM [facility] Glucose 138(H) 70 - 115 mg/dL 07/11/2024 12:51 PM [facility] Calcium 8.1(L) 8.4 - 10.2 mg/dL 07/11/2024 12:51 PM [facility] Protein Total 6.6 6.0 - 8.3 g/dL 07/11/2024 12:51 PM [facility] Albumin 3.2(L) 3.4 - 5.0 g/dL 07/11/2024 12:51 PM [facility] Bilirubin Total 2.7(H) 0.2 - 1.2 mg/dL 07/11/2024 12:51 PM [facility] Alkaline Phosphatase 149 40 - 150 U/L 07/11/2024 12:51 PM [facility] ALT 24 5 - 55 U/L 07/11/2024 12:51 PM [facility] AST 42(H) 5 - 34 U/L 07/11/2024 12:51 PM [facility] Anion Gap 10 6 - 16 07/11/2024 12:51 PM [facility] BUN/Creatinine Ratio 8 7 - 23 07/11/2024 12:51 PM [facility] Osmolality Calculated 293 275 - 295 mOsm/kg 07/11/2024 12:51 PM [facility] Albumin/Globulin Ratio 0.9(L) 1.1 - 2.3 07/11/2024 12:51 PM [facility] eGFR by CKD-EPI >90 >=90 mL/min/1.7 3 m2 07/11/2024 12:51 PM [facility] Blood BLOOD SPECIMEN / Unknown Lab Venipuncture / Unknown 07/11/2024 11:49 AM CDT 07/11/2024 12:21 PM T Flavia Knowles LENDING MANAGER-STITCHER FEEDER LAB - CHEMI STRY ORDERABLES Performing Organization Address [facility]/State/[facility] Co de Phone Number [facility] [address] [place] [phone] [phone] * HEPATITIS B SURFACE ANTIBODY (07/11/2024 11:49 AM CDT) Hepatitis B Virus Surface Antibody Non-react syeda Non-react syeda 07/11/2024 1:09 PM [facility] Comment: < 8 mIU/mL Hepatitis B surface Antibody (HBsAb). Nonreactive for HBsAb - individual is considered not immune to Hepatitis B Virus infection. Hepatitis B Surface Antibody Quantitative 0.0 <8.0 mIU/mL 07/11/2024 1:09 PM [facility] Comment: Hepatitis B Surface Antibody Numeric Result Interpretation: ? Nonreactive: ?<8.0 mIU/mL ? Indeterminate: ??8.0 - 12.0 mIU/mL ? Reactive: ?>12.0 mIU/mL ? Blood BLOOD SPECIMEN / Unknown Lab Venipuncture / Unknown 07/11/2024 11:49 AM CDT 07/11/2024 12:10 PM CDT Flavia Knowles LENDING MANAGER-STITCHER FEEDER LAB - CHEMI STRY ORDERABLES [address] [address], [place] [phone] * HEPATITIS B CORE ANTIBODY TOTAL (07/11/2024 11:49 AM CDT) Pathologist [facility] HBc Antibody Total Non-reacti ve Non-reacti ve 07/11/2024 1:09 PM CDT [facility] Blood BLOOD SPECIMEN / Unknown Lab Venipuncture / Unknown 07/11/2024 11:49 AM CDT 07/11/2024 12:10 PM CDT Flavia Knowles APRN-STITCHER FEEDER LAB - CHEMI STRY ORDERABLES Performing Organization Address [facility]/ZIP Co de Phone Number [address] [address], [place] [phone] * HEPATITIS B SURFACE ANTIGEN W RFLX CONFIRMATION (07/11/2024 11:49 AM CDT) Pathologist [facility] Hepatitis B Virus Surface Antigen Non-reacti ve Non-reacti ve 07/11/2024 1:09 PM CDT [facility] Blood BLOOD SPECIMEN / Unknown Lab Venipuncture / Unknown 07/11/2024 11:49 AM CDT 07/11/2024 12:10 PM CDT Flavia Knowles LENDING [facility] LAB - CHEMI STRY ORDERABLES Performing Organization Address City/[facility]/ZIP Co de Phone Number [address] [address], [place] [phone] * (ABNORMAL) GGT (07/11/2024 11:49 AM CDT) Pathologist [facility] GGT 67(H) 9 - 64 Units/L 07/11/2024 4:22 PM CDT [facility] Blood BLOOD SPECIMEN / Unknown Lab Venipuncture / Unknown 07/11/2024 11:49 AM CDT 07/11/2024 12:21 PM CDT Flavia Knowles LENDING MANAGER-STITCHER FEEDER LAB - CHEMI STRY ORDERABLES [facility] [address] [place] [address], [facility] [place] [phone] * IRON + TRANSFERRIN PANEL (07/11/2024 11:49 AM CDT) Iron 54 50 - 175 ug/dL 07/11/2024 4:23 PM CDT [facility] Transferrin 238 174 - 382 mg/dL 07/11/2024 4:23 PM CDT [facility] Transferrin Saturation % 18 16 - 50 % 07/11/2024 4:23 PM CDT [facility] TIBC Calculated 298 240 - 450 ug/dL 07/11/2024 4:23 PM CDT [facility] Blood BLOOD SPECIMEN / Unknown Lab Venipuncture / Unknown 07/11/2024 11:49 AM CDT 07/11/2024 12:10 PM CDT Flavia Knowles LENDING MANAGER-STITCHER FEEDER LAB - CHEMI STRY ORDERABLES [facility] [address] [place] [address], [facility] [place] [phone] * HEPATITIS C ANTIBODY (07/11/2024 11:49 AM CDT) Hepatitis C Antibody Non-react syeda Non-reac tive 07/11/2024 1:09 PM CDT [facility] Comment:Hepatitis C Antibody screen indicates no serologic [...] CDT 07/11/2024 12:10 PM CDT Flavia Knowles APRN-STITCHER FEEDER LAB - CHEMI STRY ORDERABLES [facility] [address] [place] [address], [place] [phone] * (ABNORMAL) HEPATITIS A ANTIBODY (07/11/2024 11:49 AM CDT) Pathologist [facility] Hepatitis A Virus Antibody Total Positive( A) Negative 07/12/2024 7:41 PM CDT [facility] ([facility]) Comment: The positive anti-HAV is consistent with recent or remote Hepatitis A infection or antibody response to HAV vaccination. False positive anti-HAV can occur. Performed By: [facility] [address] [place] [address] Property Worker: Haider Oakley MD, PhD CLIA Number: [id number] Blood BLOOD SPECIMEN / Unknown Lab Venipuncture / Unknown 07/11/2024 11:49 AM CDT 07/11/2024 12:10 PM CDT Flavia Knowles APRN-STITCHER FEEDER LAB - CHEMI STRY ORDERABLES Performing Organization Address City/[facility]/ZIP Co de Phone Number [facility] ([facility]) [address] [place] [address] * FERRITIN (07/11/2024 11:49 AM CDT) [facility] Ferritin 84 22 - 275 ng/mL 07/11/2024 1:09 PM CDT [facility] Blood BLOOD SPECIMEN / Unknown Lab Venipuncture / Unknown 07/11/2024 11:49 AM CDT 07/11/2024 12:10 PM CDT Flavia Knowles APRN-STITCHER FEEDER LAB - CHEMI STRY ORDERABLES [facility] [address] [place] [address], [place] [phone] * ED GENERAL PROCEDURE (11/11/2016 8:33 AM INSPECTOR WATCH TRAIN) Narrative Calcara, Joshua, MD - 11/11/2016 8:33 AM INSPECTOR WATCH TRAIN Conrad Cruz PA-C ? 11/10/2016 ??6:21 PM General Procedure Date/Time: 11/10/2016 6:18 PM Performed by: CONRAD CRUZ Authorized by: JESÚS DUTTA Consent: Verbal consent obtained. Risks and benefits: risks, benefits and alternatives were discussed Consent given by: patient Patient understanding: patient states understanding of the procedure being performed Patient consent: the patient's understanding of the procedure matches consent given Procedure consent: procedure consent matches procedure scheduled Required items: required blood products, implants, devices, and special equipment available Patient identity confirmed: verbally with patient Preparation: Patient was prepped and draped in the usual sterile fashion. Local anesthesia used: yes Anesthesia: digital block Anesthesia: Local anesthesia used: yes Anesthesia: digital block Local Anesthetic: lidocaine 1% without epinephrine Anesthetic total: 3 mL Sedation: Patient sedated: no Patient tolerance: Patient tolerated the procedure well with no immediate complications Comments: ?? Digital block to left pinky at approximately 12:45 p.m.. ?? Patient had complete resolution of pain afterwards. Jesús Dutta MD PROCEDURE/MINOR BARON RGICAL ORDERABLES * XR FINGER(S) LEFT (11/10/2016 11:32 AM INSPECTOR WATCH TRAIN) Anatomical Region Laterality Modality Upper Extremity, Wrist / Hand Ra diographic Imaging 11/10/2016 11:4 3 AM INSPECTOR WATCH TRAIN Narrative 11/10/2016 11:44 AM INSPECTOR WATCH TRAIN 3 views left fifth finger INDICATION: Left fifth finger pain. Recent injury. Initial encounter. 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 There is a nondisplaced fracture of the osseous tuft of the left fifth finger. There is soft tissue swelling. There is no dislocation. There are no radiopaque foreign bodies. Procedure Note Mario Guzman MD - 11/10/2016 3 views left fifth finger INDICATION: Left fifth finger pain. Recent injury. Initial encounter. 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 There is a nondisplaced fracture of the osseous tuft of the left fifth finger. There is soft tissue swelling. There is no dislocation. There are no radiopaque foreign bodies. Jesús Dutta MD DIAGNOSTIC IMAGING ORDERABLES Care Teams Banjo Repairer Relationship Specialty Start Date End Date Jaya Patterson MD [address] [place] [id number] PCP - General Family Medicine 11/10/16
--- OUTSIDE RECORDS SUMMARY | 2024-11-07 01:40 | XMS_ITS | Clinical Summary ---
Author Organization [facility] Address [address] [place] [address]. [place] [address] [place] [address] Care Team Providers Care Svp Digital Sales Food & Cooking Name Role Phone Unavailable Primary Care Provider Unavailabl e Social History Tobacco Use Types Packs/Day Years Used Date Smoking Tobacco: Never Assessed Sex and Gender Information Value Date Recorded Sex Assigned at Not on file Legal Sex Male 8:14 PM CDT Gender Identity Not on file Sexual Orientation Not on file Plan of Treatment Health Maintenance Due Date Last Done Comments Colorectal Cancer Screening Colonoscopy (10 Years) 1958 Hepatitis C 1976 DTaP, Tdap and Td Vaccines ( 1 - Tdap) 1977 Zoster Vaccines (1 of 2) 2008 Pneumococcal Vaccine: 65+ Ye ars (1 of 1 - PCV) 2023 COVID-19 Vaccine ( - 2023-2 5 season) 2024 Influenza Adult (#1) 2024 RSV Immunization or 60+ Years (1 - 1-dose 75+ series) 2033 Meningococcal Vaccine Aged Out No marylu myriam eligible based on patient's age to complete this topic RSV Immunizations Under 20 Months Aged Out No longer eligible based on patient's age to complete this topic
--- OUTSIDE RECORDS SUMMARY | 2024-11-07 01:40 | XMS_ITS | Referral Summary ---
Author Organization [facility] Address [address] [place] [address] Care Team Providers Care Gravel Truck Driver Name Role Phone Jaya Patterson MD Primary Care Provider [phone] Source Comments [facility],non-owned Affiliates and Associated Physician Practices is amultiple site organization consisting of ambulatory clinics and hospital sitesin [place]. This disclosure is being madepursuant to the Care Everywhere program and may not contain all information available regarding this patient. Last updated 18.[facility] Allergies No known active allergies Medications * [...] T Respiratory Rate 16 11/10/2016 6:57 PM RECORDS MANAGEMENT COORDINATOR Oxygen Saturation 99% 07/11/2024 10: 15 AM CDT Inhaled Oxygen Concentration - - Weight 92.9 kg (204 lb 12.8 oz) 024 10:15 AM CDT Height 172.7 cm (5' 8 ) 07/11/2024 10:1 5 AM CDT Body Mass Index 31.14 07/11/2024 10:15 AM CDT Functional Status Functional Status Response Date of Assess ment Is person deaf or have serious hearing difficult y? No 11/10/2016 Is person blind or have serious difficulty seein g? No 11/10/2016 Does person have serious dif ficulty walking/climbing stairs? No 11/10/2016 Does person have difficulty dressing/bathing? No 11/10/2016 Does person have difficulty doing errands alone? No 11/10/2016 Cognitive Status Response Date of Assessm ent Does person have difficulty concentrating/remembering/making decisions? No 11/10/2016 Plan of Treatment Upcoming Encounters Date Type Department Care Team (Late st Contact Info) Description 11/27/2024 1:00 PM RECORDS MANAGEMENT COORDINATOR [facility] Visit [facility] - [address] [place] [phone] Sorin Knowlesie N, FINISHED GOODS STOCK CLERK-BANANA GRADER [address] [place] [address] Procedures Procedure Name Priority Date/Time Associated Diagnosis [...] 7 - 26 mg/dL 07/11/2024 12:51 PM [facility] Creatinine 0.64(L) 0.71 - 1.16 mg/dL 07/11/2024 12:51 PM [facility] Sodium 142 136 - 145 mmol/L 07/11/2024 12:51 PM [facility] Potassium 3.3(L) 3.5 - 4.5 mmol/L 07/11/2024 12:51 PM [facility] Chloride 112(H) 98 - 107 mmol/L 07/11/2024 12:51 PM [facility] CO2 20(L) 22 - 29 mmol/L 07/11/2024 12:51 PM [facility] Glucose 138(H) 70 - 115 mg/dL 07/11/2024 12:51 PM [facility] Calcium 8.1(L) 8.4 - 10.2 mg/dL 07/11/2024 12:51 PM [facility] Protein Total 6.6 6.0 - 8.3 g/dL 07/11/2024 12:51 PM [facility] Albumin 3.2(L) 3.4 - 5.0 g/dL 07/11/2024 12:51 PM [facility] Bilirubin Total 2.7(H) 0.2 - 1.2 mg/dL 07/11/2024 12:51 PM [facility] Alkaline Phosphatase 149 40 - 150 U/L 07/11/2024 12:51 PM [facility] ALT 24 5 - 55 U/L 07/11/2024 12:51 PM [facility] AST 42(H) 5 - 34 U/L 07/11/2024 12:51 PM [facility] Anion Gap 10 6 - 16 07/11/2024 12:51 PM [facility] BUN/Creatinine Ratio 8 7 - 23 07/11/2024 12:51 PM [facility] Osmolality Calculated 293 275 - 295 mOsm/kg 07/11/2024 12:51 PM [facility] Albumin/Globulin Ratio 0.9(L) 1.1 - 2.3 07/11/2024 12:51 PM [facility] eGFR by CKD-EPI >90 >=90 mL/min/1.7 3 m2 07/11/2024 12:51 PM [facility] Blood BLOOD SPECIMEN / Unknown Lab Venipuncture / Unknown 07/11/2024 11:49 AM CDT 07/11/2024 12:21 PM CDT Flavia Knowles FINISHED GOODS STOCK CLERK-BANANA GRADER LAB - CHEMI STRY ORDERABLES [facility] [address] [place] [address], [facility] [phone] * HEPATITIS C ANTIBODY (07/11/2024 11:49 AM CDT) Hepatitis C Antibody Non-react syeda Non-reac tive 07/11/2024 1:09 PM [facility] Comment:Hepatitis C Antibody screen indicates no [...] CDT 07/11/2024 12:10 PM CDT Flavia Knowles FINISHED GOODS STOCK CLERK-BANANA GRADER LAB - CHEMI STRY ORDERABLES [facility] [address] [place] [address], [facility] [phone] from Last 3 Months or Most Recently Relevant to Health Maintenance Care Teams Gravel Truck Driver Relationship Specialty Start Date End Date Jaya Patterson MD [address] [place] [address] PCP - General Family Medicine 11/10/16
--- OUTSIDE RECORDS SUMMARY | 2024-11-07 01:40 | XMS_ITS | Clinical Summary ---
Author Organization [facility] Address [address] [place] [address] Phone Care Team Providers Care Invasive Cardiologist Name Role Phone Jaya Patterson MD Primary Care Provider [phone]- [phone] Allergies No known active allergies Medications clorazepate (TRANXENE) 3.75 mg Oral tablet Take 3.75 mg by mouth 2 times daily. Active ibuprofen (MOTRIN) 800 mg Oral tablet Take 800 mg by mouth every 6 hours as needed. Active ALPRAZolam (XANAX) 0.25 mg Oral tablet Take 0.25 mg by mouth nightly as needed. Active oxyCODONE-aceta minophen (PERCOCET) 5-325 mg Oral tablet Take 1 Tab by mouth every 4 hours as needed for Pain. 20 Tab None 1 Active bacitracin (BACIGUENT) 500 unit/g Topical Oint Apply to affected area 2 times daily. 1 Container o 1 Active Immunizations Immunization Administration Dates Next Due (ADACEL/BOOSTRIX)(10 YR UP) TDAP VACCINE, 0.5ML, IM 04/30/2011 Social History Tobacco Use Types Packs/Day Years Used Date Smoking Tobacco: Every Day Cigarettes 0.5 20 Alcohol Use Standard Drinks/Week Comments Yes 0 (1 standard drink = 0.6 oz pur e alcohol) Occasionally Sex and Gender Information Value Date Recorded Sex Assigned at Not on file Legal Sex Male 6:03 AM PROCESSING SPEC Gender Identity Not on file Sexual Orientation Not on file Last Filed Vital Signs Vital Sign Reading Time Taken Comments Blood Pressure 171/106 04/14/2020 4:03 PM CDT Pulse 85 04/14/2020 4:03 PM CDT Temperature 36.9 ??C (98.5 ??F) 04/14/2020 4:03 PM CD T Respiratory Rate 18 04/14/2020 4:03 PM CDT Oxygen Saturation 95% 04/14/2020 4:03 PM CDT Inhaled Oxygen Concentration - - Weight 93 kg (205 lb) 04/14/2020 4:03 PM CDT Height 172.7 cm (5' 8 ) 04/14/2020 4:03 PM CDT Body Mass Index 31.17 04/14/2020 4:03 PM CDT Plan of Treatment Health Maintenance Due Date Last Done Comments COLORECTAL SCREENING 2003 Colorectal Cancer Screening 2003 FIT-DNA Q 3 years 2003 FIT/FOBT Q 1 year 2003 Flex Sig/CT Colonography Q 5 years 2003 PNEUMOCOCCAL VACCINE 65+ YEARS (1 of 1 - PCV) 05/30/20 08 ZOSTER VACCINE (1 of 2) 2008 DTAP/TDAP/TD VACCINES (2 - Td or Tdap) 04/30/2021 INFLUENZA VACCINE (#1) 2024 RSV VACCINE (60+ or ) (1 - 1-dose 75+ series) 2033 Care Teams Invasive Cardiologist Relationship Specialty Start Date End Date Jaya Patterson MD PCP - General Family Practice 04/14/20
== END 2024-11-05 14:01 | disposition home or self-care (01) ==
LOC: ANHGOSHLAB 14:00
PROVIDERS: PCP Family Medicine; Visit Provider Family Medicine
DX: F10.20 Alcohol dependence, uncomplicated (principal)
CPT/HCPCS: 36415; 82077

== ENCOUNTER 2025-01-04 11:00 | Emergency (ER) | payer MEDICARE, SELFPAY ==
[2025-01-04] VITALS (36 sets, daily range): BP systolic 84–113; BP diastolic 50–69; PULSE 73–91; RESP 16–28; TEMP 34.1–36.7; O2SAT 95–100
--- NOTE | ~2025-01-04 | XR_ITS ---
CHEST RADIOGRAPH CLINICAL HISTORY: UNRESPONSIVE . COMPARISON: 08/09/2022 TECHNIQUE: Single portable view of the chest. FINDINGS The cardiomediastinal silhouette is enlarged, specifically the superior mediastinum is enlarged, like ly secondary to patient's supine positioning. Cross-sectional imaging is recommended (and in process) . Increased interstitial markings are identified bilaterally, findings suggesting mild pulmonary vascul ar congestion. The lungs are otherwise clear. IMPRESSION: Enlargement of the cardiomediastinal silhouette and the superior mediastinum, likely secondary to sup ine positioning for which cross-sectional imaging is recommended (and in process) Reviewed, dictated and finalized at location A. IMPRESSION: Enlargement of the cardiomediastinal silhouette and the superior mediastinum, l ikely secondary to supine positioning for which cross-sectional imaging is radha mmended (and in process)
--- NOTE | ~2025-01-04 | CT_ITS ---
CLINICAL INDICATION: Found down. Unresponsive. Leukocytosis and lactic acidosis. COMPARISON: None TECHNIQUE: Multiple contiguous axial images of the chest, abdomen and pelvis were performed without t he administration of intravenous contrast The dose-length product (DLP) was 1360.74 mGy-cm. Automated exposure control and iterative reconstruction technique were employed. FINDINGS/OBSERVATIONS: LUNG: Right basilar consolidation. No evidence of contusion, pneumothorax or hemothorax. MEDIASTINUM: Limited evaluation without intravenous contrast, but no significant findings to correspo nd to abnormal chest xray, which was likely secondary to positioning. HEART: The heart is enlarged, without pericardial effusion. SOFT TISSUES OF THE CHEST: Gynecomastia. PERITONEUM: Significant intra abdominal ascites. Large amount of pelvic ascites. Liver: The liver demonstrates homogeneous attenuation and is not enlarged measuring 13.6 cm in longitudinal dimension. Gallbladder and biliary system: The gallbladder is only minimally distended, and otherwise unremarkable. Pancreas: Limited evaluation of the pancreas secondary to the lack of intravenous contrast. Spleen: The spleen demonstrates homogeneous attenuation and is not enlarged measuring 10 cm in longitudinal d imension. Kidneys: The bilateral kidneys are unremarkable, without hydronephrosis or renal calculi. Adrenal glands: Unremarkable. Gastrointestinal tract: Mural thickening within the visualized bowel loops. Vasculature: Extensive varices throughout the abdomen and pelvis. Lymph nodes: Limited evaluation without intravenous contrast. Pelvic structures: The bladder is decompressed with a akers catheter. Body wall and musculoskeletal: No umbilical hernia. Fixation hardware at the level of L5 and S1. No acute fracture within the thoracic or lumbar spine. No acute rib fractures. No acute sternal fracture. IMPRESSION: Findings suggesting significant portal hypertension, as detailed above. No acute traumatic injury. Intra-abdominal and intrapelvic ascites. Reviewed, dictated and finalized at location A.
--- NOTE | ~2025-01-04 | CT_ITS ---
History: Found down. Unresponsive. PROCEDURE: CT head without contrast. COMPARISON: 08/09/2023 TECHNIQUE: Axial imaging of the head performed from the skull base to the vertex without IV contrast. Sagittal a nd coronal reformations obtained. DLP: 681 mGy-cm FINDINGS: The ventricles are normal in size, shape and position. There is no mass, mass effect or midline shift. There is no abnormal extra-axial fluid collection or intracranial hemorrhage. Visualized paranasal sinuses are clear. The mastoid air cells are well aerated. No acute displaced fractures within the overlying cranium. Impression: No acute intracranial hemorrhage or suspicious mass effect. Reviewed, dictated and finalized at location A. Impression: No acute intracranial hemorrhage or suspicious mass effect.
--- NOTE | ~2025-01-04 | CT_ITS ---
History: Found down, unresponsive. Leukocytosis and lactic acidosis PROCEDURE: CT cervical spine without intravenous contrast. COMPARISON: 08/09/2023 TECHNIQUE: Multiple contiguous axial images of the cervical spine were performed without the administration of i ntravenous contrast. DLP: 397 mGy-cm FINDINGS: Straightening and slight reversal of the normal curvature of the cervical spine is identified, unchan ged from 2022. Degenerative disease is noted with osteophyte formation, disc space narrowing and endplate changes. Facet arthropathy is also present. No acute fractures are noted. The bilateral lung apices are unremarkable. No soft tissue abnormality is present. The airway is patent. Impression: Straightening and slight reversal of the normal curvature of the cervical spine, unchanged from prior . Degenerative disease, without acute fracture. Reviewed, dictated and finalized at location A. Impression: Straightening and slight reversal of the normal curvature of the cervical spine , unchanged from prior. Degenerative disease, without acute fracture.
[2025-01-04] MEDS: SODIUM CHLORIDE 0.9% IV 1,000 ML 999 ML IV CONT (11:00)
--- NOTE | 2025-01-04 11:05 | ED_ITS ---
HPI - General Adult General Chief complaint: Altered Mental Status Stated complaint: AMS Time Seen by Provider: 01/04/25 11:04 History of Present Illness HPI narrative: PATIENT CAME TO THE ED FROM HOME WITH UNRESPONSIVENESS, UNKNOWN DURATION, THE POLICE CHECKED ON THE PATIENT 1 WEEK AGO AND WAS OKAY AT THAT TIME TODAY POLICE WENT TO CHECK ON HIM FOUND HIM ON THE FLOOR, UNRESPONSIVE, CALLED THE AMBULANCE. NO FAMILY MEMBER AT THE BEDSIDE, EMT TELLING ME THAT PATIENT HAVE HISTORY OF NOT TAKING HIS MEDICATION, NORMALLY NOT ON OXYGEN, FOUND LAYING DOWN ON THE FLOOR, UNRESPONSIVE TO PAINFUL STIMULATION. I DO NOT HAVE ENOUGH HISTORY AT THIS TIME ELEVATOR PILOT WAS ABLE TO GET HOLD OF 1 OF THE PATIENT FRIEND WHO REPORTS THAT PATIENT DOES NOT COMMUNICATE WITH HIS FAMILY AND HE DOES NOT KNOW ANYTHING ABOUT HIS MEDICAL CONDITION OR HIS LIVING WELL. Related Data Home Medications ?Medication ?Instructions ?Recorded ?Confirmed ?Last Taken ?Type furosemide 40 mg tablet mg PO 11/04/24 11/04/24 Unknown History spironolactone 100 mg tablet mg PO 11/04/24 11/04/24 Unknown History Allergies Allergy/AdvReac Type Severity Reaction Status Date / Time No Known Allergies Allergy Verified 11/04/24 08:00 Review of Systems 2 Review of Systems: ROS unobtainable: Yes unobtainable due to medical condition and unobtainable due to mental status PMFSH Past Medical History Medical History Elevated liver enzymes Portal hypertension Elevated AST (SGOT) Hx of adenomatous colonic polyps Type 2 diabetes mellitus with hyperglycemia PTSD (post-traumatic stress disorder) Pancreatitis Hypospadias HSV infection Traumatic amputation of finger Generalized anxiety disorder with panic attacks Surgical History Surgical History History of umbilical hernia repair 04/16/2023 - Laparoscopic incarcerated epigastric and umbilical hernia repair with mesh, da Zhane assisted History of ankle surgery History of appendectomy History of lumbosacral spine surgery History of colonoscopy (~03/09/17) Family History Family History Father Diabetes mellitus Other Carcinoma of colon Family history of alcoholism Family history of mental disorder Social History Social History Smoking status: Current some day smoker Tobacco type: cigars Smoking end date: 10/15/17 Additional smoking assessment comments: QUIT CIGARETTES 2013 (1/2 PPD X 20 YRS) Alcohol intake: current Alcohol use details: RARE Substance use: current Substance use type: marijuana Last use: couple weeks ago Do You Feel Safe in your Home?: Yes Lack of Transportation: YES Lack of Food: Never True Current Housing: I Have Housing Concerned About Future Housing: No Difficulty Paying Gas/Electric Bills: No Difficulty Paying for Meds: No Currently Unemployed: YES Education: Trade/Vocational Certificate Difficulty w/ Childcare or Family Care: No Living arrangements: alone Occupation/Education: retired Gender identity (if verbalized by the patient): Male Spiritual care concerns: No Agree to blood products: Yes Exam 2 Narrative: GENERAL APPEARANCE: WELL-DEVELOPED, WELL-NOURISHED, UNRESPONSIVE TO PAINFUL STIMULATION SKIN: JAUNDICED HEAD: NORMOCEPHALIC, NONTRAUMATIC EYES: CLEAR CONJUNCTIVA ENT: DRIED BLOOD IN THE ORAL CAVITY AND ON THE LIPS OUTSIDE NECK: C COLLAR CHEST AND RESPIRATORY: AIRWAY PATENT, NO RESPIRATORY DISTRESS, NO ACCESSORY MUSCLE USE HEART: REGULAR RATE/RHYTHM ABDOMEN: SOFT, DISTENDED, QUITE BOWEL SOUNDS, NO ORGANOMEGALY VASCULAR: NORMAL PERIPHERAL PULSES, NORMAL CAPILLARY REFILL. MUSCULOSKELETAL: DOES NOT FOLLOW COMMANDS NEUROLOGIC: UNRESPONSIVE TO PAINFUL STIMULATION Course Consultations Consultation #1: DR WILLIS Date: 01/04/25 Time: 12:43 Consultation #2: DR. RODRIGUEZ PREFERS TO TRANSFER PATIENT TO [facility] Date: 01/04/25 Consultation #3: DR VALADEZ ICU AT [facility] WHO ACCEPTED PATIENT TRANSFER TO Date: 01/04/25 Additional Consultation(s): DR LEI ICU AT [facility] WHO ACCEPTED PATIENT TRANSFER Vital Signs Vital signs: Vital Signs Temperature 34.1 C L 01/04/25 11:30 Pulse Rate 73 01/04/25 11:30 Respiratory Rate 18 01/04/25 11:30 Blood Pressure 110/69 01/04/25 11:30 Pulse Oximetry 100 01/04/25 11:30 Temperature 35.3 C L 01/04/25 15:01 Pulse Rate 82 01/04/25 15:01 Respiratory Rate 20 01/04/25 15:01 Blood Pressure 105/50 L 01/04/25 15:01 Pulse Oximetry 98 01/04/25 15:01 Oxygen Delivery Nasal Cannula 01/04/25 14:05 Oxygen Flow Rate 2 01/04/25 14:05 Fraction of Inspired Oxygen 28 01/04/25 14:05 Medical Decision Making [facility] Narrative Medical decision making narrative: PATIENT CAME FROM HOME BY AMBULANCE AND RESPONSIVE VITAL SIGNS SHOWING TEMPERATURE 34.1?, BeeR HUGGER STARTED Physical examination showing patient responded to painful stimulation, jaundiced looking, hyperventilating, ascites differential diagnosis include sepsis, hepatic encephalopathy, metabolic encephalopathy, electrolyte imbalance, dehydration, urinary tract infection, intracranial hemorrhage, cervical neck fracture, ascites, GI bleed, esophageal varices Blood workup today include CBC, CMP, troponin, lactic acid, CRP, TSH, coags showed WBC of 23.7, hemoglobin 6.8, hematocrit 19.9, platelet 69, INR 3.3, sodium 134, potassium 3.1, chloride 92, bicarb 25, anion gap 17, creatinine 3.2, lactic acid 5.2 bilirubin 20.0 Urinalysis showed showed evidence of infection Chest x-ray showed no acute abnormality, CT head CT cervical spine without contrast showed no acute abnormality CT chest abdomen and pelvis without contrast showed no acute abnormalities Diagnosis metabolic encephalopathy Transferred to [facility] ICU. Differential Diagnosis Differential Diagnosis: As above Vital Signs Vital Signs: Vital Signs Temperature 34.1 C L 01/04/25 11:30 Pulse Rate 73 01/04/25 11:30 Respiratory Rate 18 01/04/25 11:30 Blood Pressure 110/69 01/04/25 11:30 Pulse Oximetry 100 01/04/25 11:30 Temperature 35.3 C L 01/04/25 15:01 Pulse Rate 82 01/04/25 15:01 Respiratory Rate 20 01/04/25 15:01 Blood Pressure 105/50 L 01/04/25 15:01 Pulse Oximetry 98 01/04/25 15:01 Oxygen Delivery Nasal Cannula 01/04/25 14:05 Oxygen Flow Rate 2 01/04/25 14:05 Fraction of Inspired Oxygen 28 01/04/25 14:05 Lab Data 01/04/25 16:50 01/04/25 16:50 Labs: Lab Results 01/04/25 01/04/25 01/04/25 Range/Units 11:15 11:55 13:55 WBC 23.7 H (4.5-10.0) K/mm3 RBC 1.73 L (4.6-6.20) M/mm3 Hgb 6.8 L* D (14.0-18.0) g/dL Hct 19.9 L* (42.0-52.0) % MCV 115.0 H (80-100) fl MCH 39.3 H (26-34) pg MCHC 34.2 (32-36) g/dl RDW 19.4 H (11.5-14.5) % Plt Count 69 L (150-375) k/mm3 MPV 11.4 H (7.4-10.4) fl Immature Gran % (Auto) 1.9 H (0-0.5) % Neut % (Auto) 85.1 H (45.5-73.1) % Lymph % (Auto) 8.1 L (18.3-44.2) % Clark % (Auto) 4.6 (2.6-8.5) % Eos % (Auto) 0.1 (0-4.4) % Baso % (Auto) 0.2 (0.2-1.2) % Lymph # (Auto) 1.92 (0.9-3.2) K/mm3 Clark # (Auto) 1.1 H (0.1-0.6) K/mm3 Eos # (Auto) 0.0 (0-0.3) K/mm3 Baso # (Auto) 0.0 (0.0-0.1) K/mm3 Abs Immat Gran (auto) 0.44 H (0.00-0.031) K/mm3 Absolute Neuts (auto) 20.2 H (1.3-6.7) K/mm3 Absolute Nucleated RBC 0.520 H (0.0-0.012) K/mm3 Band Neutrophils % Not Reportable Nucleated RBC % 2.2 H (0.0-0.2) % Platelet Estimate Decreased (Adequate) % Immature Plt Fraction 4.6 (0.9-11.2) % Basophilic Stippling 1+ Anisocytosis 1+ Macrocytosis 2+ (NORMAL) Pappenheimer Bodies Reddick Cells 1+ Schistocytes None seen PT 33.5 H (11.1-14.7) Seconds INR 3.3 APTT 48.6 H (22.3-36.8) Seconds Sodium 134 L (137-145) mmol/L Potassium 3.2 L (3.4-5.0) mmol/L Chloride 87 L (98-107) mmol/L Carbon Dioxide 30 (22-30) mmol/L Anion Gap 17 H (4-12) mmol/L BUN 98 H D (9-20) mg/dL Creatinine 3.01 H (0.7-1.3) mg/dL Estim Creat Clear Calc Not Reportable Estimated GFR 21 L (59 - ) Glucose 104 (65-110) mg/dL Lactic Acid 5.7 H* 5.2 H* (0.7-2.0) mmol/L Calcium 7.9 L (8.4-10.2) mg/dL Total Bilirubin 20.1 H (0.2-1.3) mg/dL AST 48 (17-59) U/L ALT 43 (6-50) U/L Alkaline Phosphatase 109 (38-126) U/L Ammonia 142 H (9-30) umol/L Total Creatine Kinase 70 (55-170) U/L C-Reactive Protein 3.3 H (<1.0) mg/dL Total Protein 7.0 (6.3-8.2) g/dL Albumin 2.8 L (3.5-5.1) g/dL Urine Color Dark yellow (Yellow) Urine Appearance Turbid H (Clear) Urine pH 7.5 (5.0-9.0) Ur Specific Winifred 1.012 (1.001-1.035) Urine Protein 1+ H (Negative) mg/dL Urine Glucose (UA) Negative (Negative) mg/dL Urine Ketones Negative (Negative) mg/dL Ur Blood (Man) 2+ H (Negative) Urine Nitrate Positive H (Negative) Urine Bilirubin 2+ H (Negative) Urine Urobilinogen 4.0 H (<2.0) mg/dL Leukocyte Esterase Rfl 3+ H (Negative) LAUREN/UL Urine RBC 51-100 H (0-2) /hpf Urine WBC 51-100 H (0-3) /hpf Ur Squamous Epith Cells Occasional (Few) /hpf Urine Bacteria 4+ /hpf Urine Casts 0-2 Salicylates < 1.0 L (2-20) mg/dL Urine Opiates Screen Negative (Negative) Urine Methadone Screen Negative (Negative) Acetaminophen < 10 L (10-30) ug/mL Ur Barbiturates Screen Negative (Negative) Ur Phencyclidine Scrn Negative (Negative) Ur Amphetamine Screen Negative (Negative) U Benzodiazepines Scrn Negative (Negative) Urine Cocaine Screen Negative (Negative) U Cannabinoids Screen Positive A (Negative) Ethyl Alcohol < 10 (<10) mg/dL Blood Type A Positive Antibody Screen Negative Crossmatch See Detail 01/04/25 Range/Units 16:50 WBC 18.0 H (4.5-10.0) K/mm3 RBC 2.35 L (4.6-6.20) M/mm3 Hgb 8.5 L (14.0-18.0) g/dL Hct 24.4 L (42.0-52.0) % MCV 103.8 H D (80-100) fl MCH 36.2 H D (26-34) pg MCHC 34.8 (32-36) g/dl RDW 23.5 H (11.5-14.5) % Plt Count 60 L (150-375) k/mm3 MPV 10.9 H (7.4-10.4) fl Immature Gran % (Auto) 0.9 H (0-0.5) % Neut % (Auto) 88.3 H (45.5-73.1) % Lymph % (Auto) 7.1 L (18.3-44.2) % Clark % (Auto) 3.3 (2.6-8.5) % Eos % (Auto) 0.2 (0-4.4) % Baso % (Auto) 0.2 (0.2-1.2) % Lymph # (Auto) 1.27 (0.9-3.2) K/mm3 Clark # (Auto) 0.6 (0.1-0.6) K/mm3 Eos # (Auto) 0.0 (0-0.3) K/mm3 Baso # (Auto) 0.0 (0.0-0.1) K/mm3 Abs Immat Gran (auto) 0.17 H (0.00-0.031) K/mm3 Absolute Neuts (auto) 15.9 H (1.3-6.7) K/mm3 Absolute Nucleated RBC 0.790 H (0.0-0.012) K/mm3 Band Neutrophils % Not Reportable Nucleated RBC % 4.4 H (0.0-0.2) % Platelet Estimate Decreased (Adequate) % Immature Plt Fraction 5.2 (0.9-11.2) % Basophilic Stippling Anisocytosis 2+ Macrocytosis 1+ (NORMAL) Pappenheimer Bodies 1+ Rocio Cells Schistocytes None seen PT (11.1-14.7) Seconds INR APTT (22.3-36.8) Seconds Sodium 134 L (137-145) mmol/L Potassium 3.1 L (3.4-5.0) mmol/L Chloride 92 L (98-107) mmol/L Carbon Dioxide 25 (22-30) mmol/L Anion Gap 17 H (4-12) mmol/L BUN 94 H (9-20) mg/dL Creatinine 3.22 H (0.7-1.3) mg/dL Estim Creat Clear Calc Not Reportable Estimated GFR 19 L (59 - ) Glucose 99 (65-110) mg/dL Lactic Acid 6.1 H* (0.7-2.0) mmol/L Calcium 7.4 L (8.4-10.2) mg/dL Total Bilirubin (0.2-1.3) mg/dL AST (17-59) U/L ALT (6-50) U/L Alkaline Phosphatase (38-126) U/L Ammonia (9-30) umol/L Total Creatine Kinase (55-170) U/L C-Reactive Protein (<1.0) mg/dL Total Protein (6.3-8.2) g/dL Albumin (3.5-5.1) g/dL Urine Color (Yellow) Urine Appearance (Clear) Urine pH (5.0-9.0) Ur Specific Winifred (1.001-1.035) Urine Protein (Negative) mg/dL Urine Glucose (UA) (Negative) mg/dL Urine Ketones (Negative) mg/dL Ur Blood (Man) (Negative) Urine Nitrate (Negative) Urine Bilirubin (Negative) Urine Urobilinogen (<2.0) mg/dL Leukocyte Esterase Rfl (Negative) LAUREN/UL Urine RBC (0-2) /hpf Urine WBC (0-3) /hpf Ur Squamous Epith Cells (Few) /hpf Urine Bacteria /hpf Urine Casts Salicylates (2-20) mg/dL Urine Opiates Screen (Negative) Urine Methadone Screen (Negative) Acetaminophen (10-30) ug/mL Ur Barbiturates Screen (Negative) Ur Phencyclidine Scrn (Negative) Ur Amphetamine Screen (Negative) U Benzodiazepines Scrn (Negative) Urine Cocaine Screen (Negative) U Cannabinoids Screen (Negative) Ethyl Alcohol (<10) mg/dL Blood Type Antibody Screen Crossmatch ABG Data ABG results: 01/04/25 01/04/25 11:22 13:48 Puncture Site Left brachial Right radial ABG pH 7.624 H* 7.615 H* ABG pCO2 28.0 L 26.3 L ABG pO2 71.6 L 93.2 ABG PO2/FiO2 Ratio 1.99 3.33 ABG HCO3 28.4 H 26.1 H ABG O2 Saturation 96.9 98.2 ABG O2 Content 8.9 L 10.0 L ABG Base Excess 6.8 4.7 A-a Gradient 152.6 75.4 Oxyhemoglobin 92.3 95.6 Total Hemoglobin 6.8 L* 7.3 L* O2 Delivery Device Nasal cannula Nasal cannula O2 Liters/Min 4.0 2.0 FiO2 36 28 Imaging Data Radiologist's impression: Impressions Chest X-Ray 01/04/25 12:26 IMPRESSION: Enlargement of the cardiomediastinal silhouette and the superior mediastinum, likely secondary to supine positioning for which cross-sectional imaging is recommended (and in process) Head CT 01/04/25 12:46 Impression: No acute intracranial hemorrhage or suspicious mass effect. Cervical Spine CT 01/04/25 12:48 Impression: Straightening and slight reversal of the normal curvature of the cervical spine, unchanged from prior. Degenerative disease, without acute fracture. Chest/Abdomen/Pelvis CT 01/04/25 13:04 IMPRESSION: Findings suggesting significant portal hypertension, as detailed above. No acute traumatic injury. Intra-abdominal and intrapelvic ascites. ECG Data EKG #1: Attestation: I personally reviewed and interpreted this ECG as follows: ECG completion date: 01/04/25 Interpretation: Normal sinus rhythm at 76 beats per minute, low QRS voltage in precordial leads, inferior myocardial infarction probably old, no previous EKG available for comparison Critical Care Time Critical Care Time Critical Care Time: Yes Total Critical Care Time: 60 Discharge Plan Discharge Clinical Impression: Acute hepatic encephalopathy, Hematemesis, Hyperbilirubinemia, Acute kidney failure, Urinary tract infection Patient Disposition: Acute Care Hospital Condition: Guarded Prognosis Patient Language: Romanian Prescriptions: No Action (DME) FreeStyle Naseem 2 Sensor Kit See Rx Instructions .Route Qty: 1 3RF Rx Instructions: As directed furosemide 40 mg tablet PO spironolactone 100 mg tablet PO triamcinolone acetonide 0.1 % cream 1 applic topical BID Qty: 80 2RF (DME) OneTouch Verio test strips Strip See Rx Instructions .ROUTE .COMPLEX Qty: 100 0RF Dose Instruction: DIRECTED Rx Instructions: TID (DME) FreeStyle Naseem 2 [place] Misc See Rx Instructions .ROUTE .COMPLEX Qty: 3 0RF Dose Instruction: USE DIRECTED Rx Instructions: USE DIRECTED (DME) blood-glucose meter [Great Lakes PharmaceuticalsTouch Verio Flex meter] Mis Qty: 1 0RF Rx Instructions: May substitute to in-stock meter and/or covered by insurance. Use As Directed sertraline 100 mg tablet 200 mg PO DAILY Qty: 180 1RF Rx Instructions: TAKE 2 TABLETS BY MOUTH DAILY tamsulosin 0.4 mg capsule 0.4 mg PO DAILY Qty: 90 3RF metformin 500 mg tablet extended release 24 hr 500 mg PO BID Qty: 60 3RF insulin degludec [Tresiba FlexTouch U-200] 200 unit/mL (3 mL) insulin pen 35 unit subcut DAILY Qty: 9 1RF (DME) pen needle, diabetic [BD Ultra-Fine Nancy Pen Needle] 32 gauge x 5/32 needle Qty: 100 0RF Rx Instructions: May substitute to meet patient needs. Use As Directed insulin glargine 100 unit/mL (3 mL) insulin pen 40 unit subcut QAM Qty: 15 1RF (DME) lancets [OneTouch Delica Plus Lancet] 33 gauge misc See Rx Instructions .ROUTE .COMPLEX Qty: 100 0RF Dose Instruction: USE TO CHECK BLOOD SUGARS DAILY Rx Instructions: USE TO CHECK BLOOD SUGARS DAILY Follow-up/Referrals: Jaya Patterson MD [Primary Care Provider] -
--- NOTE | 2025-01-04 11:09 | PCCCNOTE ---
6911-Called the pt's contact Jaya Bermudez at [phone] whom is listed as his friend d/t the pt brought in the ED via EMS unconscious. EMS stated the [place] police dept called them after a wellness check was completed at the home. Mr. Bermudez stated, I think he gave up . [facility] Let him know he's critically ill and asked if he has any relatives to contact and he stated he doesn't have any family he speaks to and has no way to contact them. Jaya asked if he should come up to see the pt. Let him know the pt was seriously ill and unsure the dynamics of their relationship however he was welcome to come. Jaya stated he takes care of anything he may need and to please call him if anything changes.-slava
--- NOTE | 2025-01-04 11:10 | ECG_ITS ---
Test Date: 2025-01-04 11:47:35 Measurements Intervals [place] Rate: 76 P: 33 CT: 176 QRS: 4 QRSD: 110 T: 97 QT: 409 QTc: 462 Interpretive Statements SINUS RHYTHM LOW QRS VOLTAGE IN PRECORDIAL LEADS [QRS DEFLECTION < 1.0 mV IN CHEST LEADS] POSSIBLE INFERIOR MYOCARDIAL INFARCTION , PROBABLY OLD [30 ms Q WAVE IN II/aVF] No previous ECG available for comparison Electronically Signed On 01-04-2025 13:36:14 CDT by Sonia Bradshaw M.D.
--- OUTSIDE RECORDS SUMMARY | 2025-01-04 11:18 | XMS_ITS | Clinical Summary ---
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 Gender Identity Not on file Sexual Orientation Not on file Last Filed Vital Signs Vital Sign Reading Time Taken Comments Blood Pressure 171/106 04/14/2020 4:03 PM CDT Pulse 85 04/14/2020 4:03 PM CDT Temperature 36.9 C (98.5 F) 04/14/2020 4:03 PM CDT Respiratory Rate 18 04/14/2020 4:03 PM CDT [...] Colonography Q 5 years 2003 PNEUMOCOCCAL VACCINE 50+ YEARS (1 of 1 - PCV) 05/30/20 08 ZOSTER VACCINE (1 of 2) 2008 DTAP/TDAP/TD VACCINES (2 - Td or Tdap) 04/30/2021 INFLUENZA VACCINE (#1) 2024 RSV VACCINE (60+ or ) (1 - 1-dose 75+ series) 2033 Care Teams Chief Financial Officer Relationship Specialty Start Date End Date Jaya Patterson MD PCP - General Family Practice 04/14/20
--- OUTSIDE RECORDS SUMMARY | 2025-01-04 11:18 | XMS_ITS | Clinical Summary ---
Author Organization [facility] Address [address] [place] [id number] Care Team Providers Care Tentering Machine Feeder Name Role Phone Unavailable Primary Care Provider [...] (1 - 1-dose 75+ series) 2033 Meningococcal B Vaccine Aged Out No l onger eligible based on patient's age to complete this topic Meningococcal Vaccine Aged Out No marylu myriam eligible based on patient's age to complete this topic RSV Immunizations Under 20 Months Aged Out No longer eligible based on patient's age to complete this topic
--- OUTSIDE RECORDS SUMMARY | 2025-01-04 11:18 | XMS_ITS | Clinical Summary ---
Author Organization [facility] Address [address] [place] [address] Care Team Providers Care Power Bender Operator Name Role Phone Jaya Patterson MD Primary Care Provider [phone]- [phone] Source Comments [facility],non-owned Affiliates and Associated Physician Practices is amultiple site organization consisting of ambulatory clinics and hospital sitesin [place], [place], [place] and [place]. This disclosure is being madepursuant to the Care Everywhere program and may not contain all information available regarding this patient. Last updated 18.[facility] Allergies No known active allergies Medications * [...] 77 07/11/2024 10:15 AM CDT Temperature 36.3 C (97.4 F) 11/10/2016 6:57 PM [facility] Respiratory Rate 16 11/10/2016 6:57 PM [facility] Oxygen Saturation 99% 07/11/2024 10: 15 AM CDT Inhaled Oxygen Concentration - - Weight 92.9 kg (204 lb 12.8 oz) 024 10:15 AM CDT Height 172.7 cm (5' 8 ) 07/11/2024 10:1 5 AM CDT Body Mass Index 31.14 07/11/2024 10:15 AM CDT Plan of Treatment Upcoming Encounters Date Type Department Care Team (Late st Contact Info) Description 02/03/2025 2:40 PM CDT Appointment [facility] [address] [place] [id number] Flavia Knowles, MANAGER TALENT MANAGEMENT-REAL ESTATE SALES AGENT [address] [place] [address] [address] [place] [address] 02/03/2025 3:30 PM CDT Office Visit [facility] - [address] [place] [address], [place] [id number] Flavia Knowles, MANAGER TALENT MANAGEMENT-REAL ESTATE SALES AGENT [address] [address] [address] [place] [address] Health Maintenance Due Date Last Done Comments [...] (#1) 2024 DEPRESSION SCREENING 10/15/2024 MEDICARE AWV CALENDAR YEAR 2024 SCREENING FOR DIABETES 07/11/2027 07/11/2024 HEPATITIS C SCREENING Completed 07/11/2024 HIB VACCINE Aged Out No longer eligi ble based on patient's age to complete this topic HPV VACCINE Aged Out No longer eligi ble based on patient's age to complete this topic MENINGOCOCCAL (Group B) VACC INE SHARED DECISION-MAKING Aged Out No longer eligibl e based on patient's age to complete this topic MENINGOCOCCAL GROUPS A/C/Y/W VACCINE Aged Out No longer eligible b ased on patient's age to complete this topic Procedures Procedure Name Priority Date/Time Associated Diagnosis Comments COMPREHENSIVE METABOLIC PANEL Routine 07/11/2024 11:49 AM CDT Alcoholic cirrhosis of liver with ascites HEPATITIS C ANTIBODY Routine 07/11/2024 11:49 AM CDT Alcoholic cirrhosis of liver with ascites from Last 3 Months or Most Recently Relevant to Health Maintenance Results * (ABNORMAL) COMPREHENSIVE METABOLIC PANEL (07/11/2024 11:49 AM CDT) BUN 5(L) 7 - 26 mg/dL 07/11/2024 12:51 PM [facility] Creatinine 0.64(L) 0.71 - 1.16 mg/dL 07/11/2024 12:51 PM [facility] Sodium 142 136 - 145 mmol/L 07/11/2024 12:51 PM [facility] Potassium 3.3(L) 3.5 - 4.5 mmol/L 07/11/2024 12:51 PM [facility] Chloride 112(H) 98 - 107 mmol/L 07/11/2024 12:51 PM [facility] CO2 20(L) 22 - 29 mmol/L 07/11/2024 12:51 PM [facility] Glucose 138(H) 70 - 115 mg/dL 07/11/2024 12:51 PM [facility] Calcium 8.1(L) 8.4 - 10.2 mg/dL 07/11/2024 12:51 PM [facility] Protein Total 6.6 6.0 - 8.3 g/dL 07/11/2024 12:51 PM [facility] Albumin 3.2(L) 3.4 - 5.0 g/dL 07/11/2024 12:51 PM [facility] Bilirubin Total 2.7(H) 0.2 - 1.2 mg/dL 07/11/2024 12:51 PM [facility] Alkaline Phosphatase 149 40 - 150 U/L 07/11/2024 12:51 PM [facility] ALT 24 5 - 55 U/L 07/11/2024 12:51 PM [facility] AST 42(H) 5 - 34 U/L 07/11/2024 12:51 PM [facility] Anion Gap 10 6 - 16 07/11/2024 12:51 PM [facility] BUN/Creatinine Ratio 8 7 - 23 07/11/2024 12:51 PM [facility] Osmolality Calculated 293 275 - 295 mOsm/kg 07/11/2024 12:51 PM [facility] Albumin/Globulin Ratio 0.9(L) 1.1 - 2.3 07/11/2024 12:51 PM CDT [facility] eGFR by CKD-EPI >90 >=90 mL/min/1.7 3 m2 07/11/2024 12:51 PM CDT [facility] Blood BLOOD SPECIMEN / Unknown Lab Venipuncture / Unknown 07/11/2024 11:49 AM CDT 07/11/2024 12:21 PM CDT Flavia Knowles MANAGER TALENT MANAGEMENT-REAL ESTATE SALES AGENT LAB - CHEMI STRY ORDERABLES [facility] [address] [place] [address], [place] [phone] * HEPATITIS C ANTIBODY (07/11/2024 11:49 AM CDT) Hepatitis C Antibody Non-react syeda Non-reac tive 07/11/2024 1:09 PM CDT [facility] Comment:Hepatitis C Antibody screen indicates no [...] CDT 07/11/2024 12:10 PM CDT Flavia Knowles APRN-REAL ESTATE SALES AGENT LAB - CHEMI STRY ORDERABLES [facility] [address] [place] [address], [place] [phone] from Last 3 Months or Most Recently Relevant to Health Maintenance Care Teams Power Bender Operator Relationship Specialty Start Date End Date Jaya Patterson MD [address] [place] [id number] PCP - General Family Medicine 11/10/16
[2025-01-04 11:24] LABS: Alveolar/Arterial O2 Gradient 152.6 mmHg; Base Excess ABG 6.8 mEq/l (+/-2.0); Fractional Inspired Oxygen 36 %; HCO3 ABG 28.4 mEq/l (22.0-26.0); Oxygen Content ABG 8.9 %vol (16.0-22.0); Oxygen Saturation ABG 96.9 % (95.0-100.0); Oxyhemoglobin 92.3 % THb (90.0-100.0); PO2 ABG 71.6 mmHg (80.0-100.0); PO2 FiO2 Ratio Arterial Blood 1.99 %
[2025-01-04 11:25] LABS: Device NASAL CANNULA; Site Drawn LEFT BRACHIAL; Total Hemoglobin 6.8 g/dL (12.0-18.0); pH ABG 7.624 (7.350-7.450)
[2025-01-04 11:32] LABS: Basophils Percent Auto 0.2 % (0.2-1.2); Eosinophils Percent Auto 0.1 % (0-4.4); Immature Granulocyte Absolute 0.44 K/mm3 (0.00-0.031); Immature Granulocyte Percent A 1.9 % (0-0.5); Immature Platelet Fraction Pct 4.6 % (0.9-11.2); Lymphocytes Absolute Auto 1.92 K/mm3 (0.9-3.2); Lymphocytes Percent Auto 8.1 % (18.3-44.2); Mean Corpuscular HGB Conc 34.2 g/dl (32-36); Mean Corpuscular Hemoglobin 39.3 pg (26-34); Mean Platelet Volume 11.4 fl (7.4-10.4); Monocytes Absolute Auto 1.1 K/mm3 (0.1-0.6); Monocytes Percent Auto 4.6 % (2.6-8.5); Neutrophils Absolute Auto 20.2 K/mm3 (1.3-6.7); Neutrophils Percent Auto 85.1 % (45.5-73.1); Nucleated Red Blood Cells Perc 2.2 % (0.0-0.2); Platelet Count Result 69 k/mm3 (150-375); Red Blood Count 1.73 M/mm3 (4.6-6.20); Red Cell Distribution Width 19.4 % (11.5-14.5); White Blood Count 23.7 K/mm3 (4.5-10.0)
[2025-01-04 11:37] LABS: Add Urine Microscopic? YES; Appearance Urine Turbid (Clear); Bacteria Urine 4+ /hpf; Bilirubin Urine 2+ (Negative); Blood Urine 2+ (Negative); Color Urine Dark Yellow (Yellow); Glucose Urine UA Negative (Negative); Ketones Urine Negative (Negative); Leukocyte Esterase Ur 3+ LEU/UL (Negative); Nitrate Urine Positive (Negative); Non Pathogenic Casts 0-2; Protein Urine 1+ mg/dL (Negative); RBC Urine 51-100 /hpf (0-2); Specific Grav Ur 1.012 (1.001-1.035); Squamous Epithelial Cell Urine Occasional /hpf (Few); WBC Urine 51-100 /hpf (0-3); pH Urine 7.5 (5.0-9.0)
[2025-01-04 11:42] LABS: Acetaminophen < 10 ug/mL (10-30); Ammonia 142 umol/L (9-30); Creatine Kinase 70 U/L (55-170); Ethanol < 10 mg/dL (<10); INR 3.3; Prothrombin Time 33.5 Seconds (11.1-14.7); Salicylate < 1.0 mg/dL (2-20)
[2025-01-04 11:43] LABS: Partial Thromboplastin Time 48.6 Seconds (22.3-36.8)
[2025-01-04 11:45] LABS: Lactic Acid Reflex 5.7 mmol/L (0.7-2.0)
[2025-01-04 11:46] LABS: Albumin Level 2.8 g/dL (3.5-5.1); Alkaline Phosphatase 109 U/L (38-126); Anion Gap 17 mmol/L (4-12); Aspartate Amino Transferase 48 U/L (17-59); Bilirubin,Total 20.1 mg/dL (0.2-1.3); Blood Urea Nitrogen 98 mg/dL (9-20); CRP 3.3 mg/dL (<1.0); Calcium 7.9 mg/dL (8.4-10.2); Carbon Dioxide 30 mmol/L (22-30); Chloride 87 mmol/L (98-107); Estimated Glomerular Filt Rate 21; Glucose 104 mg/dL (65-110); Potassium 3.2 mmol/L (3.4-5.0); Sodium 134 mmol/L (137-145)
[2025-01-04 11:55] LABS: Alanine Aminotransferase 43 U/L (6-50)
[2025-01-04 11:57] LABS: Barbiturate Screen Urine Negative (Negative); Benzodiazepines Screen Urine Negative (Negative)
[2025-01-04 11:59] LABS: Amphetamine Screen Urine Negative (Negative); Cocaine Screen Urine Negative (Negative); Methadone Screen Urine Negative (Negative); Opiate Screen Urine Negative (Negative); Phencyclidine Screen Urine Negative (Negative)
[2025-01-04 12:01] LABS: Cannabinoid Screen Urine Positive (Negative)
[2025-01-04 12:03] LABS: Hematocrit 19.9 % (42.0-52.0); Hemoglobin 6.8 g/dL (14.0-18.0)
[2025-01-04 12:09] LABS: Anisocytosis 1+; Basophilic Stippling 1+; Macrocytosis 2+ (NORMAL); Platelet Estimate Decreased (Adequate)
[2025-01-04 12:10] LABS: Burr Cells 1+; Schistocytes None Seen
--- NOTE | 2025-01-04 12:53 | P.HP_ITS ---
H&P: HPI History of Present Illness Date/Time: 01/04/25 12:53 [facility] Past Medical History Medical History Elevated liver enzymes Portal hypertension Elevated AST (SGOT) Hx of adenomatous colonic polyps Type 2 diabetes mellitus with hyperglycemia PTSD (post-traumatic stress disorder) Pancreatitis Hypospadias HSV infection Traumatic amputation of finger Generalized anxiety disorder with panic attacks Surgical History Surgical History History of umbilical hernia repair 04/16/2023 - Laparoscopic incarcerated epigastric and umbilical hernia repair with mesh, da Zhane assisted History of ankle surgery History of appendectomy History of lumbosacral spine surgery History of colonoscopy (~03/09/17) Family History Family History Father Diabetes mellitus Other Carcinoma of colon Family history of alcoholism Family history of mental disorder Social History Social History Smoking status: Current some day smoker Tobacco type: cigars Smoking end date: 10/15/17 Additional smoking assessment comments: QUIT CIGARETTES 2012 (10/16 PPD X 20 YRS) Alcohol intake: current Alcohol use details: RARE Substance use: current Substance use type: marijuana Last use: couple weeks ago Do You Feel Safe in your Home?: Yes Lack of Transportation: YES Lack of Food: Never True Current Housing: I Have Housing Concerned About Future Housing: No Difficulty Paying Gas/Electric Bills: No Difficulty Paying for Meds: No Currently Unemployed: YES Education: Trade/Vocational Certificate Difficulty w/ Childcare or Family Care: No Living arrangements: alone Occupation/Education: retired Gender identity (if verbalized by the patient): Male Spiritual care concerns: No Agree to blood products: Yes Meds Home Medications and Allergies Home Medications ?Medication ?Instructions ?Recorded ?Confirmed ?Type flash glucose sensor (FreeStyle #1 ea 08/23/22 06/05/24 Rx Naseem 2 Sensor kit) blood sugar diagnostic (OneTouch #100 strips 11/03/22 06/05/24 Rx Verio test strips) flash glucose scanning reader #3 ea 12/22/22 06/05/24 Rx (FreeStyle Naseem 2 [place]) blood-glucose meter (OneTouch #1 pkg 03/05/23 06/05/24 Rx Verio Flex Meter) sertraline 100 mg tablet 200 mg (2 x 100 mg) PO DAILY #180 06/08/23 11/04/24 Rx tabs tamsulosin 0.4 mg capsule 0.4 mg PO DAILY #90 caps 12/28/23 11/04/24 Rx metformin 500 mg tablet,extended 500 mg PO BID #60 tabs 01/29/24 11/04/24 Rx release 24 hr insulin degludec 200 unit/mL (3 35 unit (0.175 mL) subcut DAILY #9 06/06/24 11/04/24 Rx mL) subcutaneous pen (Tresiba mL FlexTouch U-200 insulin) pen needle, diabetic 32 gauge x #100 ea 08/19/24 Rx /32 (BD Ultra-Fine Nancy Pen Needle) insulin glargine 100 unit/mL (3 40 unit (0.4 mL) subcut QAM #15 mL 08/27/24 11/04/24 Rx mL) subcutaneous pen furosemide 40 mg tablet mg PO 11/04/24 11/04/24 History spironolactone 100 mg tablet mg PO 11/04/24 11/04/24 History triamcinolone acetonide 0.1 % 1 applic topical BID #80 grams 11/04/24 11/04/24 Rx topical cream lancets 33 gauge (OneTouch Delica #100 ea 11/07/24 Rx Plus Lancet) Allergies Allergy/AdvReac Type Severity Reaction Status Date / Time No Known Allergies Allergy Verified 11/04/24 08:00 Vital Signs Vital Signs - 24 hr 01/04/25 11:34 Temperature 93.3 F L Pulse Rate 75 Respiratory Rate 16 Blood Pressure 110/69 Pulse Oximetry 100 Oxygen Delivery Room Air H&P: Results Labs Labs: Short CBC 01/04/25 Range/Units 11:15 WBC 23.7 H (4.5-10.0) K/mm3 Hgb 6.8 L* D (14.0-18.0) g/dL Hct 19.9 L* (42.0-52.0) % Plt Count 69 L (150-375) k/mm3 BMP 01/04/25 11:15 Sodium 134 L Potassium 3.2 L Chloride 87 L Carbon Dioxide 30 BUN 98 H D Creatinine 3.01 H Glucose 104 Calcium 7.9 L Cardiac Enzymes 01/04/25 Range/Units 11:15 Total Creatine Kinase 70 (55-170) U/L Liver Function 01/04/25 Range/Units 11:15 Total Bilirubin 20.1 H (0.2-1.3) mg/dL AST 48 (17-59) U/L ALT 43 (6-50) U/L Alkaline Phosphatase 109 (38-126) U/L Albumin 2.8 L (3.5-5.1) g/dL Urine 01/04/25 Range/Units 11:15 Urine Color Dark yellow (Yellow) Urine Appearance Turbid H (Clear) Urine pH 7.5 (5.0-9.0) Ur Specific [place] 1.012 (1.001-1.035) Urine Protein 1+ H (Negative) mg/dL Urine Glucose (UA) Negative (Negative) mg/dL
[2025-01-04] MEDS: PANTOPRAZOLE SODIUM IV 40 MG VIAL IV PUSH (13:04)
[2025-01-04] MEDS: OCTREOTIDE ACETATE 50 MCG/ML VIAL IV PUSH (13:04)
[2025-01-04] MEDS: OCTREOTIDE ACETATE 500 MCG in SODIUM CHLORIDE 0.9% IV 99 ML 10 MCG IV CONT (13:07)
[2025-01-04] MEDS: SODIUM CHLORIDE 0.9% IV 250 ML 30 ML IV CONT (13:09)
[2025-01-04 13:25] LABS: Reflex Lactic Acid Yes or No Add Lactic
--- NOTE | 2025-01-04 13:40 | P.CONGI_ITS ---
Assessment and Plan Assessment and plan (1) Cirrhosis of liver with ascites: Qualifiers: Hepatic cirrhosis type: alcoholic cirrhosis Qualified Code(s): K70.31 - Alcoholic cirrhosis of liver with ascites Code(s): K74.60 - Unspecified cirrhosis of liver; R18.8 - Other ascites Status: Acute Assessment and Plan: The patient presents with acute encephalopathy, significant hepatic atrophy, and moderate to severe ascites; his MELD 3.0 score of 43 indicates a grave prognosis with estimated 30-day and 60-day survival rates of 33% and 4.3%, respectively, necessitating immediate intervention. His transaminases are only modestly elevated, therefore acute alcohol ingestion does not seem to be playing a role at this moment. Management should include hemodynamic stabilization, transfusion of 2 units of packed red blood cells, octreotide 50 mcg IV bolus followed by a 50 mcg/hour infusion, ceftriaxone 1 g IV for SBP prophylaxis, a diagnostic paracentesis to rule out SBP, and urgent EGD following stabilization. For the apparent grade 4 hepatic encephalopathy/hepatic coma, a nasogastric tube should be placed, and lactulose 20 g administered hourly until bowel movements occur, aiming to resolve the encephalopathy. Apparently the patient will be transfered to a tertiary care institution. (2) Portal hypertension: Code(s): K76.6 - Portal hypertension Status: Acute (3) Alcoholic cirrhosis: Code(s): K70.30 - Alcoholic cirrhosis of liver without ascites Status: Acute (4) Acute hepatic encephalopathy: Code(s): K76.82 - Hepatic encephalopathy Status: Acute GI Consult Note Consult date/time: 01/04/25 13:40 Reason for consult: Decompensated cirrhosis HPI: Eddie Ordaz is a 64 year old male with a longstanding history of alcohol use, followed by specialists at [facility]. The patient lives alone, and was found unconscious at home by the police and brought here by ambulance. There is no information about details of this unconsciousness episode. Review of Systems 2 Review of Systems: All systems reviewed & are unremarkable except as noted in HPI and below PMFSH Past Medical History Medical History Elevated liver enzymes Portal hypertension Elevated AST (SGOT) Hx of adenomatous colonic polyps Type 2 diabetes mellitus with hyperglycemia PTSD (post-traumatic stress disorder) Pancreatitis Hypospadias HSV infection Traumatic amputation of finger Generalized anxiety disorder with panic attacks Surgical History Surgical History History of umbilical hernia repair 04/16/2023 - Laparoscopic incarcerated epigastric and umbilical hernia repair with mesh, da Zhane assisted History of ankle surgery History of appendectomy History of lumbosacral spine surgery History of colonoscopy (~03/09/17) Family History Family History Father Diabetes mellitus Other Carcinoma of colon Family history of alcoholism Family history of mental disorder Social History Social History Smoking status: Current some day smoker Tobacco type: cigars Smoking end date: 10/15/17 Additional smoking assessment comments: QUIT CIGARETTES 2012 (10/16 PPD X 20 YRS) Alcohol intake: current Alcohol use details: RARE Substance use: current Substance use type: marijuana Last use: couple weeks ago Do You Feel Safe in your Home?: Yes Lack of Transportation: YES Lack of Food: Never True Current Housing: I Have Housing Concerned About Future Housing: No Difficulty Paying Gas/Electric Bills: No Difficulty Paying for Meds: No Currently Unemployed: YES Education: Trade/Vocational Certificate Difficulty w/ Childcare or Family Care: No Living arrangements: alone Occupation/Education: retired Gender identity (if verbalized by the patient): Male Spiritual care concerns: No Agree to blood products: Yes Meds Home Medications and Allergies Home Medications ?Medication ?Instructions ?Recorded ?Confirmed ?Type flash glucose sensor (LodgeoStyle #1 ea 08/23/22 06/05/24 Rx Naseem 2 Sensor kit) blood sugar diagnostic (OneTouch #100 strips 11/03/22 06/05/24 Rx Verio test strips) flash glucose scanning reader #3 ea 12/22/22 06/05/24 Rx (FreeStyle Naseem 2 House) blood-glucose meter (OneTouch #1 pkg 03/05/23 06/05/24 Rx Verio Flex Meter) sertraline 100 mg tablet 200 mg (2 x 100 mg) PO DAILY #180 06/08/23 11/04/24 Rx tabs tamsulosin 0.4 mg capsule 0.4 mg PO DAILY #90 caps 12/28/23 11/04/24 Rx metformin 500 mg tablet,extended 500 mg PO BID #60 tabs 01/29/24 11/04/24 Rx release 24 hr insulin degludec 200 unit/mL (3 35 unit (0.175 mL) subcut DAILY #9 06/06/24 11/04/24 Rx mL) subcutaneous pen (Tresiba mL FlexTouch U-200 insulin) pen needle, diabetic 32 gauge x #100 ea 08/19/24 Rx 5/32 (BD Ultra-Fine Nancy Pen Needle) insulin glargine 100 unit/mL (3 40 unit (0.4 mL) subcut QAM #15 mL 08/27/24 11/04/24 Rx mL) subcutaneous pen furosemide 40 mg tablet mg PO 11/04/24 11/04/24 History spironolactone 100 mg tablet mg PO 11/04/24 11/04/24 History triamcinolone acetonide 0.1 % 1 applic topical BID #80 grams 11/04/24 11/04/24 Rx topical cream lancets 33 gauge (OneTouch Delica #100 ea 11/07/24 Rx Plus Lancet) Allergies Allergy/AdvReac Type Severity Reaction Status Date / Time No Known Allergies Allergy Verified 11/04/24 08:00 Vital Signs Vital Signs - 24 hr 01/04/25 11:30 01/04/25 11:34 01/04/25 12:00 Temperature 93.4 F L 93.3 F L 93.5 F L Pulse Rate 73 75 78 Respiratory Rate 18 16 18 Blood Pressure 110/69 110/69 109/53 L Pulse Oximetry 100 100 100 Oxygen Delivery Room Air 01/04/25 12:30 01/04/25 13:00 01/04/25 13:20 Temperature 93.6 F L 93.9 F L Pulse Rate 76 79 80 Respiratory Rate 18 20 20 Blood Pressure 111/53 L 93/54 L 108/60 Pulse Oximetry 100 98 100 Oxygen Delivery 01/04/25 13:30 Temperature 94.2 F L Pulse Rate 81 Respiratory Rate 20 Blood Pressure 93/56 L Pulse Oximetry 100 Oxygen Delivery Exam 2 Narrative: Unkempt, unconscious, unresponsive to painful stimuli. Markedly jaundiced. signs of dry blood around his mouth, gums and nose. Lungs: Clear to auscultation. Abdomen, distended, not tense, positive fluid wave sign, shifting dullness. Extremities: No edema. Skin: Jaundice and multiple telangiectasias and abdomen thorax and neck. Results Labs 01/04/25 11:15 01/04/25 11:15 Labs: Short CBC 01/04/25 Range/Units 11:15 WBC 23.7 H (4.5-10.0) K/mm3 Hgb 6.8 L* D (14.0-18.0) g/dL Hct 19.9 L* (42.0-52.0) % Plt Count 69 L (150-375) k/mm3 BMP 01/04/25 11:15 Sodium 134 L Potassium 3.2 L Chloride 87 L Carbon Dioxide 30 BUN 98 H D Creatinine 3.01 H Glucose 104 Calcium 7.9 L Cardiac Enzymes 01/04/25 Range/Units 11:15 Total Creatine Kinase 70 (55-170) U/L Liver Function 01/04/25 Range/Units 11:15 Total Bilirubin 20.1 H (0.2-1.3) mg/dL AST 48 (17-59) U/L ALT 43 (6-50) U/L Alkaline Phosphatase 109 (38-126) U/L Albumin 2.8 L (3.5-5.1) g/dL Urine 01/04/25 Range/Units 11:15 Urine Color Dark yellow (Yellow) Urine Appearance Turbid H (Clear) Urine pH 7.5 (5.0-9.0) Ur Specific [place] 1.012 (1.001-1.035) Urine Protein 1+ H (Negative) mg/dL Urine Glucose (UA) Negative (Negative) mg/dL
[2025-01-04 14:00] LABS: Alveolar/Arterial O2 Gradient 75.4 mmHg; Base Excess ABG 4.7 mEq/l (+/-2.0); Fractional Inspired Oxygen 28 %; HCO3 ABG 26.1 mEq/l (22.0-26.0); Oxygen Saturation ABG 98.2 % (95.0-100.0); Oxyhemoglobin 95.6 % THb (90.0-100.0); PCO2 ABG 26.3 mmHg (35.0-45.0); PO2 ABG 93.2 mmHg (80.0-100.0); PO2 FiO2 Ratio Arterial Blood 3.33 %
[2025-01-04 14:01] LABS: Device NASAL CANNULA; Modified Allen's Test Pass; Site Drawn RIGHT RADIAL; Total Hemoglobin 7.3 g/dL (12.0-18.0); pH ABG 7.615 (7.350-7.450)
[2025-01-04 14:18] LABS: Lactic Acid 5.2 mmol/L (0.7-2.0)
[2025-01-04] MEDS: LACTULOSE ENEMA 200 GM/1,000 ML ENEMA RECTAL (15:22)
--- NOTE | 2025-01-04 15:30 | PC.NURSE ---
lactulose enema given. Unable to retain any of the enema. Fecal collection system inserted
--- NOTE | 2025-01-04 15:59 | PCCCNOTE ---
1559-ED nurse received a phone call supposably from the pt's son Delvis Ordaz. Stated he is a nurse here at [employer] [facility] [employer] and was told by the police his dad is here in house and requested a update in his status. Nurse informed the son he is not on the contact list, the friend would be called for permission to share his status and a return call will be made to Delvis at [phone]. Called pts friend Irene Aidan and LVM requesting a return call.slava.
[2025-01-04 17:06] LABS: Basophils Percent Auto 0.2 % (0.2-1.2); Eosinophils Percent Auto 0.2 % (0-4.4); Hematocrit 24.4 % (42.0-52.0); Hemoglobin 8.5 g/dL (14.0-18.0); Immature Granulocyte Absolute 0.17 K/mm3 (0.00-0.031); Immature Granulocyte Percent A 0.9 % (0-0.5); Immature Platelet Fraction Pct 5.2 % (0.9-11.2); Lymphocytes Absolute Auto 1.27 K/mm3 (0.9-3.2); Lymphocytes Percent Auto 7.1 % (18.3-44.2); Mean Corpuscular HGB Conc 34.8 g/dl (32-36); Mean Corpuscular Hemoglobin 36.2 pg (26-34); Mean Corpuscular Volume 103.8 fl (80-100); Mean Platelet Volume 10.9 fl (7.4-10.4); Monocytes Absolute Auto 0.6 K/mm3 (0.1-0.6); Monocytes Percent Auto 3.3 % (2.6-8.5); Neutrophils Absolute Auto 15.9 K/mm3 (1.3-6.7); Neutrophils Percent Auto 88.3 % (45.5-73.1); Nucleated Red Blood Cells Perc 4.4 % (0.0-0.2); Platelet Count Result 60 k/mm3 (150-375); Red Blood Count 2.35 M/mm3 (4.6-6.20); Red Cell Distribution Width 23.5 % (11.5-14.5)
[2025-01-04 17:16] LABS: Anion Gap 17 mmol/L (4-12); Blood Urea Nitrogen 94 mg/dL (9-20); Calcium 7.4 mg/dL (8.4-10.2); Carbon Dioxide 25 mmol/L (22-30); Chloride 92 mmol/L (98-107); Estimated Glomerular Filt Rate 19; Glucose 99 mg/dL (65-110); Potassium 3.1 mmol/L (3.4-5.0); Sodium 134 mmol/L (137-145)
[2025-01-04 17:19] LABS: Lactic Acid Reflex 6.1 mmol/L (0.7-2.0)
[2025-01-04 17:29] LABS: Anisocytosis 2+; Macrocytosis 1+ (NORMAL); Pappenheimer Bodies 1+; Platelet Estimate Decreased (Adequate)
[2025-01-04 17:30] LABS: Schistocytes None Seen
== END 2025-01-04 18:12 | disposition short-term general hospital (02) ==
PROVIDERS: Emergency Provider Emergency Medicine; PCP Family Medicine
DX: K76.82 Hepatic encephalopathy (principal); K92.0 Hematemesis; E80.6 Other disorders of bilirubin metabolism; N17.9 Acute kidney failure, unspecified; N39.0 Urinary tract infection, site not specified; K76.6 Portal hypertension; E11.9 Type 2 diabetes mellitus without complications; F41.1 Generalized anxiety disorder; F43.10 Post-traumatic stress disorder, unspecified; Z87.891 Personal history of nicotine dependence
CPT/HCPCS: 36415; 36430; 36600; 70450; 71045; 71250; 72125; 74176; 80048; 80053; 80143; 80179; 80307; 81001; 82077; 82140; 82550; 82805; 83605; 85018; 85025; 85055; 85610; 85730; 86140; 86850; 86900; 86901; 86923; 87040; 87086; 87186; 93005; 96361; 96365; 96375; 99285; J0696; J2354; J2470; J7030; J7050; P9016